=== PATIENT | female | born 1955 | race Caucasian/White ===

== ENCOUNTER → 2016-09-30 | Outpatient (CLI) | payer MEDICARE ==
[~2016-09-30] MED LIST: /HALO5TAB OR; ABIL10TA OR; AMBI10TA OR; ASTAPRO; BENZ1TAB OR; COGE1INJ IJ; DEPA500T2 OR; HALO10TA4 OR; LISI10TA4 OR; NEUR300C OR; QUET30XR OR; RISP3TAB16 OR; SERO400T OR; VIST25CA OR; lopressor
[2016-09-30 13:02] LABS: MEAN CORPUSCULAR HEMOGLOBIN 32.5 pg (27.0-33.0); MEAN CORPUSCULAR HGB CONC 32.7 g/dl (32.0-36.5); MEAN CORPUSCULAR VOLUME 99.3 fl (80.0-96.0); RED CELL DISTRIBUTION WIDTH 13.4 % (11.5-14.5); WHITE BLOOD COUNT 5.1 K/mm3 (4.0-10.0)
[2016-09-30 13:14] LABS: ALBUMIN 3.6 GM/DL (3.2-5.2); ALBUMIN/GLOBULIN RATIO 1.09 (1.00-1.93); ALKALINE PHOSPHATASE 106 U/L (45-117); ALT/SGPT 45 U/L (12-78); ANION GAP 6 MEQ/L (8-16); AST/SGOT 39 U/L (15-37); BILIRUBIN,TOTAL 0.5 MG/DL (0.2-1.0); BLOOD UREA NITROGEN 31 MG/DL (7-18); CALCIUM LEVEL 9.9 MG/DL (8.8-10.2); CARBON DIOXIDE LEVEL 32 MEQ/L (21-32); CHLORIDE LEVEL 103 MEQ/L (98-107); CHOLESTEROL LEVEL 228 MG/DL (<200); CREATININE FOR GFR 0.98 MG/DL (0.55-1.02); GLOMERULAR FILTRATION RATE > 60.0 (>45); GLUCOSE, FASTING 92 MG/DL (80-110); POTASSIUM SERUM 4.3 MEQ/L (3.5-5.1); SODIUM LEVEL 141 MEQ/L (136-145); TOTAL PROTEIN 6.9 GM/DL (6.4-8.2); TRIGLYCERIDES LEVEL 223 MG/DL (<150)
== END ==
LOC: M WUC 09:36
PROVIDERS: ATTEND Family Medicine
DX: K21.9 Gastro-esophageal reflux disease without esophagitis (principal); I10 Essential (primary) hypertension

== ENCOUNTER → 2016-12-13 | Outpatient (CLI) | payer MEDICARE ==
[~2016-12-13] MED LIST changes: +BUPR150T3 PO; +DEPA500T2 PO; +GLUCTAB6 PO; +KETO0.05 TOP; +LEVA1TAB2 PO; +OMEP40CA2 PO; +SERO200T PO; +VITMTA PO
--- NOTE | 2016-12-13 13:13 | REP ---
Right hip two views : There is no fracture or dislocation. Mineralization and joint spaces are normal. There are no calcifications or foreign bodies. Impression: Negative right hip . Signed by Nehemias Almendarez MD 12/13/2016 01:04 P
== END ==
LOC: M WUC 09:25
PROVIDERS: ATTEND Physician Assistant
DX: S70.01XA Contusion of right hip, initial encounter (principal); Y92.89 Other specified places as the place of occurrence of the external cause; Y93.89 Activity, other specified; Y99.8 Other external cause status; X58.XXXA Exposure to other specified factors, initial encounter

== ENCOUNTER → 2016-12-25 | Outpatient (REF) | payer MEDICARE ==
[2016-12-25 20:23] LABS: CALCIUM OXALATE CRYSTALS LARGE
== END ==
LOC: M LAB REF 16:40
PROVIDERS: ATTEND Family Medicine
DX: R35.0 Frequency of micturition (principal)

== ENCOUNTER → 2017-06-18 | Outpatient (REF) | payer MEDICARE ==
[2017-06-18 19:23] LABS: WBC, URINE TNTC /hpf (0-3)
[2017-06-18 19:27] LABS: AMORPHOUS SEDIMENT, URINE LARGE AMOUNT (NEGATIVE); BACTERIA, URINE MOD AMOUNT; HYALINE CAST, URINE NONE SEEN /lpf (0-1); MICROSCOPIC EXAM PERFORMED; RBC, URINE 0-1 /hpf (0-3); SQUAMOUS EPITHELIAL CELL URINE MOD AMOUNT /hpf (SMALL AMT); TRANSITIONAL EPI CELLS, URINE SMALL AMOUNT /hpf
== END ==
LOC: M SMT 18:04
DX: R32 Unspecified urinary incontinence (principal)
CPT/HCPCS: 81015

== ENCOUNTER → 2017-10-08 | Outpatient (CLI) | payer MEDICARE ==
[2017-10-08 20:08] LABS: BASO # 0.1 10^3/uL (0.0-0.2); BASO % 1.3 % (0.0-1.0); EOS # 0.1 10^3/uL (0.0-0.50); EOS % 1.7 % (0.0-3.0); HEMATOCRIT 40.7 % (36.0-47.0); HEMOGLOBIN 13.7 g/dl (12.0-15.5); IMMATURE GRANULOCYTE % 2.4 % (0-3.0); LYMPH # 1.4 10^3/uL (1.5-4.5); LYMPH % 30.8 % (24.0-44.0); MEAN CORPUSCULAR HEMOGLOBIN 31.5 pg (27.0-33.0); MEAN CORPUSCULAR HGB CONC 33.7 g/dl (32.0-36.5); MEAN CORPUSCULAR VOLUME 93.6 fl (80.0-96.0); MONO # 0.5 10^3/uL (0.0-0.8); MONO % 10.8 % (0.0-5.0); NEUTROPHILS # 2.4 10^3/uL (1.8-7.7); PLATELET COUNT, AUTOMATED 130 10^3/uL (150-450); RED BLOOD COUNT 4.35 10^6/uL (4.00-5.40); RED CELL DISTRIBUTION WIDTH 13.2 % (11.5-14.5); WHITE BLOOD COUNT 4.6 10^3/uL (4.0-10.0)
[2017-10-08 20:26] LABS: ALBUMIN 3.7 GM/DL (3.2-5.2); ALBUMIN/GLOBULIN RATIO 1.19 (1.00-1.93); ALKALINE PHOSPHATASE 96 U/L (45-117); ALT/SGPT 24 U/L (12-78); AST/SGOT 22 U/L (7-37); BILIRUBIN,DIRECT < 0.1 MG/DL (0.0-0.2); BILIRUBIN,TOTAL 0.2 MG/DL (0.2-1.0); FREE T3 2.4 PG/ML (2.2-4.0); IRON (FE) 96 UG/DL (50-170); THYROXINE (T4) 4.7 UG/DL (4.5-12.0); TOTAL PROTEIN 6.8 GM/DL (6.4-8.2)
== END ==
LOC: M WUC 17:47
DX: R53.83 Other fatigue (principal)
CPT/HCPCS: 83540

== ENCOUNTER → 2018-01-06 | Outpatient (CLI) | payer MEDICARE | LOC: M WUC 14:13 | DX: M25.571 Pain in right ankle and joints of right foot (principal) | CPT/HCPCS: 73610 ==

== ENCOUNTER → 2018-03-31 | Outpatient (REF) | payer MEDICARE ==
[2018-04-02 14:22] LABS: HPV HYBRID CAPTURE II Negative (Negative)
== END ==
LOC: M LAB REF 17:17
DX: Z01.419 Encounter for gynecological examination (general) (routine) without abnormal findings (principal); Z11.51 Encounter for screening for human papillomavirus (HPV)
CPT/HCPCS: G0123

== ENCOUNTER 2018-04-13 12:34 | Outpatient (RCR) | payer MEDICARE | END 2018-04-17 | LOC: M PT 12:34 | DX: M25.571 Pain in right ankle and joints of right foot (principal) | CPT/HCPCS: 97110 ==

== ENCOUNTER → 2018-04-22 | Outpatient (CLI) | payer MEDICARE ==
[2018-04-22 17:01] LABS: ALBUMIN 3.9 GM/DL (3.2-5.2); ALBUMIN/GLOBULIN RATIO 1.26 (1.00-1.93); ALKALINE PHOSPHATASE 87 U/L (45-117); ALT/SGPT 38 U/L (12-78); AST/SGOT 29 U/L (7-37); BILIRUBIN,DIRECT 0.1 MG/DL (0.0-0.2); BILIRUBIN,TOTAL 0.5 MG/DL (0.2-1.0); THYROID STIMULATING HORMONE 0.629 uIU/ML (0.358-3.740); THYROXINE (T4) 8.3 UG/DL (4.5-12.0)
== END ==
LOC: M WUC 10:45
DX: E07.9 Disorder of thyroid, unspecified (principal)
CPT/HCPCS: 84443

== ENCOUNTER 2018-04-27 12:59 | Outpatient (RCR) | payer MEDICARE | END 2018-05-18 | LOC: M PT 12:59 | PROVIDERS: ATTEND Orthopaedic Surgery | DX: S96.911D Strain of unspecified muscle and tendon at ankle and foot level, right foot, subsequent encounter (principal) ==

== ENCOUNTER 2018-12-15 12:02 | Emergency (ER) | payer MEDICARE, SELFPAY ==
[~2018-12-15] VITALS: Ht 167.6 cm; Wt 82.3 kg
[~2018-12-15 12:02] MED LIST changes: -/HALO5TAB OR; +HALO1TAB21 OR; -QUET30XR OR; +SERO300T20 OR
[2018-12-15] MEDS ORDERED: DEPA250T32 PO (12:11)
[2018-12-15] MEDS ORDERED: AMOX875T (12:13)
[2018-12-15] MEDS ORDERED: PANT40TA3 PO (12:13)
[2018-12-15] MEDS ORDERED: AMLO5TAB6 PO (12:13)
--- NOTE | 2018-12-15 13:04 | REP ---
Clinical: Pain and swelling. Technique: AP, lateral, bilateral oblique and sunrise views of the right knee. Findings: Osteopenia and early advanced tricompartmental osteoarthritic degenerative changes are appreciated. Findings include subchondral sclerosis, osteophytosis, joint space narrowing. Small suprapatellar effusion cannot be excluded. No acute fracture or dislocation. Impression: Osteopenia and early advanced tricompartmental osteoarthritic degenerative changes. Electronically Signed by Ant Tucker MD 12/15/2018 12:56 P
[2018-12-15 14:41] VITALS: BP 137/96
[2018-12-15] MEDS ORDERED: CAPS0.022 TOP (16:00)
[2018-12-15] MEDS ORDERED: ACETAMINOPHEN 650MG ER TAB (TYLENOL ARTHRITIS) PO PRN (16:15)
[2019-01-04] MEDS ORDERED: DIVA500T9 PO (11:21)
[2019-01-04] MEDS ORDERED: OXYB5TAB2 PO (11:21)
[2019-01-04] MEDS ORDERED: NP T30TA PO (11:21)
[2019-01-04] MEDS ORDERED: QUET200T2 PO (11:21)
[2019-01-04] MEDS ORDERED: CIDA500T2 PO (11:31)
[2019-01-04] MEDS ORDERED: ACET500T15 PO (11:31)
[2019-01-04] MEDS ORDERED: AZO1CAP2 PO (11:31)
[2019-01-04] MEDS ORDERED: CALC1TAB26 PO (11:31)
== END 2018-12-15 16:25 | disposition home or self-care (01) ==
LOC: M ED 12:02
DX: M17.11 Unilateral primary osteoarthritis, right knee (principal); M85.861 Other specified disorders of bone density and structure, right lower leg; I10 Essential (primary) hypertension; K21.9 Gastro-esophageal reflux disease without esophagitis; F31.9 Bipolar disorder, unspecified; Z79.899 Other long term (current) drug therapy

== ENCOUNTER 2018-12-21 21:23 | Emergency (ER) | payer MEDICARE ==
[~2018-12-21] VITALS: Ht 167.6 cm; Wt 181.0 kg
[~2018-12-21 21:23] MED LIST changes: +AMLO5TAB6 PO; +AMOX875T; +CAPS0.022 TOP; +DEPA250T32 PO; -OMEP40CA2 PO; +OMEP40CA97 PO; +PANT40TA3 PO
[2018-12-21 22:18] LABS: BASO # 0.1 10^3/uL (0.0-0.2); BASO % 1.2 % (0.0-1.0); EOS # 0.1 10^3/uL (0.0-0.50); EOS % 1.2 % (0.0-3.0); HEMATOCRIT 42.6 % (36.0-47.0); HEMOGLOBIN 13.8 g/dl (12.0-15.5); LYMPH # 1.7 10^3/uL (1.5-4.5); LYMPH % 26.3 % (24.0-44.0); MEAN CORPUSCULAR HGB CONC 32.4 g/dl (32.0-36.5); MEAN CORPUSCULAR VOLUME 89.5 fl (80.0-96.0); MONO # 0.8 10^3/uL (0.0-0.8); MONO % 11.4 % (0.0-5.0); NEUTROPHILS # 3.9 10^3/uL (1.8-7.7); NEUTROPHILS % 59.6 % (36.0-66.0); PLATELET COUNT, AUTOMATED 228 10^3/uL (150-450); RED BLOOD COUNT 4.76 10^6/uL (4.00-5.40); WHITE BLOOD COUNT 6.6 10^3/uL (4.0-10.0)
[2018-12-21 22:53] LABS: BLOOD UREA NITROGEN 19 MG/DL (7-18); CALCIUM LEVEL 9.7 MG/DL (8.8-10.2); CARBON DIOXIDE LEVEL 31 MEQ/L (21-32); CHLORIDE LEVEL 107 MEQ/L (98-107); CK-MB VALUE MASS 5.8 NG/ML (<3.6); CPK CREATINE PHOSPHOKINASE 213 U/L (26-192); CREATININE FOR GFR 0.97 MG/DL (0.55-1.30); GLOMERULAR FILTRATION RATE > 60.0 (>45); GLUCOSE, FASTING 92 MG/DL (70-100); MB/CK RELATIVE INDEX 2.72 (< OR =4); POTASSIUM SERUM 4.1 MEQ/L (3.5-5.1); SODIUM LEVEL 143 MEQ/L (136-145); TROPONIN I < 0.02 NG/ML (< 0.10)
[2018-12-21 23:15] VITALS: BP 156/97
--- NOTE | 2018-12-22 09:18 | REP ---
PORTABLE CHEST, ONE VIEW: HISTORY: Chest pain. COMPARISON: 11/14/2016. The lungs are clear. The heart is normal in size. The pulmonary vasculature is normal in appearance. IMPRESSION: No acute disease. Electronically Signed by Rico Lyles MD 12/22/2018 09:29 A
--- NOTE | 2018-12-22 19:42 | ECGEPIP ---
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
[2019-01-04] MEDS ORDERED: NP T30TA PO (11:21)
[2019-01-04] MEDS ORDERED: QUET200T2 PO (11:21)
[2019-01-04] MEDS ORDERED: OXYB-54 PO (11:21)
[2019-01-04] MEDS ORDERED: DIVA500T9 PO (11:21)
[2019-01-04] MEDS ORDERED: CALC1TAB26 PO (11:31)
[2019-01-04] MEDS ORDERED: CIDA500T2 PO (11:31)
[2019-01-04] MEDS ORDERED: AZO1CAP2 PO (11:31)
[2019-01-04] MEDS ORDERED: ACET500T15 PO (11:31)
[2019-04-10] MEDS ORDERED: CLON0.5T2 PO (11:49)
[2019-04-27] MEDS ORDERED: AMLO10TA5 PO (18:36)
[2019-04-27] MEDS ORDERED: ROBILIQ13 PO (18:36)
== END 2018-12-21 23:34 | disposition home or self-care (01) ==
LOC: M ED 21:23
DX: R00.2 Palpitations (principal); R00.0 Tachycardia, unspecified; I10 Essential (primary) hypertension; Z82.49 Family history of ischemic heart disease and other diseases of the circulatory system; Z79.899 Other long term (current) drug therapy

== ENCOUNTER → 2018-12-24 | Outpatient (CLI) | payer MEDICARE ==
[~2018-12-24] MED LIST changes: +ACET-897 PO; +ACET500T15 PO; +AMLO10TA5 PO; +AZO1CAP2 PO; +CALC1TAB26 PO; +CIDA500T2 PO; +CLON0.5T17 PO; +CLON0.5T2 PO; +DIVA500T9 PO; +LATU20TA PO; +LATU40TA PO; +MELA3TAB41 PO; +MELA3TAB49 PO; +MELA3TAB59 PO; +NP T30TA PO; +OXYB-54 PO; +PATIENT COMMENTS; +QUET200T2 PO; +ROBI1LIQ PO; +ROBILIQ13 PO; +SELF1KIT MC; +SERO400T PO
[2018-12-24 19:43] LABS: HEMATOCRIT 43.9 % (36.0-47.0); HEMOGLOBIN 14.2 g/dl (12.0-15.5); MEAN CORPUSCULAR HEMOGLOBIN 28.5 pg (27.0-33.0); MEAN CORPUSCULAR HGB CONC 32.3 g/dl (32.0-36.5); MEAN CORPUSCULAR VOLUME 88.2 fl (80.0-96.0); PLATELET COUNT, AUTOMATED 224 10^3/uL (150-450); RED BLOOD COUNT 4.98 10^6/uL (4.00-5.40); WHITE BLOOD COUNT 5.9 10^3/uL (4.0-10.0)
[2018-12-24 20:03] LABS: BILIRUBIN,TOTAL 0.4 MG/DL (0.2-1.0); CREATININE FOR GFR 1.05 MG/DL (0.55-1.30); GLOMERULAR FILTRATION RATE 56.3 (>45); POTASSIUM SERUM 4.5 MEQ/L (3.5-5.1); TOTAL PROTEIN 7.4 GM/DL (6.4-8.2)
== END ==
LOC: M WUC 16:32
PROVIDERS: ATTEND Family Medicine
DX: Z01.818 Encounter for other preprocedural examination (principal)

== ENCOUNTER 2019-04-10 11:39 | Inpatient (IN) | payer MEDICARE ==
[~2019-04-10] VITALS: Ht 167.6 cm; Wt 85.4 kg
[~2019-04-10 11:39] MED LIST changes: -ACET-897 PO; -AMLO10TA5 PO; -CLON0.5T17 PO; -CLON0.5T2 PO; -LATU20TA PO; -LATU40TA PO; -MELA3TAB41 PO; -MELA3TAB49 PO; -MELA3TAB59 PO; -OXYB-54 PO; +OXYB5TAB2 PO; -PATIENT COMMENTS; -ROBI1LIQ PO; -ROBILIQ13 PO; -SELF1KIT MC; -SERO400T PO
[2019-04-10] MEDS ORDERED: CLON0.5T8 PO (11:49)
[2019-04-10 12:08] LABS: BASO # 0.1 10^3/uL (0.0-0.2); BASO % 0.9 % (0.0-1.0); EOS # 0.1 10^3/uL (0.0-0.5); EOS % 0.9 % (0.0-3.0); HEMATOCRIT 43.2 % (36.0-47.0); HEMOGLOBIN 13.8 g/dl (12.0-15.5); LYMPH # 1.6 10^3/uL (1.5-5.0); LYMPH % 29.2 % (24.0-44.0); MEAN CORPUSCULAR HEMOGLOBIN 29.6 pg (27.0-33.0); MEAN CORPUSCULAR HGB CONC 31.9 g/dl (32.0-36.5); MEAN CORPUSCULAR VOLUME 92.5 fl (80.0-96.0); MONO # 0.5 10^3/uL (0.0-0.8); MONO % 9.9 % (0.0-5.0); NEUTROPHILS # 3.2 10^3/uL (1.5-8.5); NEUTROPHILS % 58.4 % (36.0-66.0); PLATELET COUNT, AUTOMATED 190 10^3/uL (150-450); RED BLOOD COUNT 4.67 10^6/uL (4.00-5.40); WHITE BLOOD COUNT 5.5 10^3/uL (4.0-10.0)
[2019-04-10 12:30] LABS: ABG BASE EXCESS 4.7 (-2.0-2.0); ABG HCO3 29.4 MEQ/L (22.0-26.0); ABG O2 SATURATION 94.1 % (95.0-99.0); ABG PARTIAL PRESSURE CO2 43.7 mmHg (35.0-45.0); ABG PARTIAL PRESSURE O2 68.8 mmHg (75.0-100.0); ABG STANDARD HCO3 28.6 MEQ/L (22.0-26.0); ABG TOTAL CO2 30.8 MEQ/L (23.0-31.0); ABG pH (ARTERIAL) 7.446 UNITS (7.350-7.450)
--- NOTE | 2019-04-10 12:32 | REP ---
REASON FOR EXAM: Drug overdose. COMPARISON: 12/21/2018 FINDINGS: The technique utilized in obtaining the radiograph has magnified the cardiac silhouette and accentuated the interstitial markings. The superior mediastinal structures are midline. The cardiac silhouette is unremarkable in size, shape, and position. The diaphragmatic surfaces of the lungs are regular, and the costophrenic angles are clear. The pulmonary martin are clear. The imaged osseous structures are intact. IMPRESSION: There is no acute cardiopulmonary disease. No change from the prior exam. Electronically Signed by Godfrey Pierson DO 04/10/2019 01:28 P
[2019-04-10 12:40] LABS: ACETAMINOPHEN LEVEL < 2.0 UG/ML (10.0-30.0); ALBUMIN 3.4 GM/DL (3.2-5.2); ALT/SGPT 32 U/L (12-78); BILIRUBIN,DIRECT < 0.1 MG/DL (0.0-0.2); BILIRUBIN,TOTAL 0.4 MG/DL (0.2-1.0); BLOOD UREA NITROGEN 24 MG/DL (7-18); CALCIUM LEVEL 9.8 MG/DL (8.8-10.2); CARBON DIOXIDE LEVEL 31 MEQ/L (21-32); CHLORIDE LEVEL 101 MEQ/L (98-107); CPK CREATINE PHOSPHOKINASE 296 U/L (26-192); ETHYL ALCOHOL (ETHANOL) < 0.003 % (0.000-0.010); GLOMERULAR FILTRATION RATE 43.9 (>45); GLUCOSE, FASTING 146 MG/DL (70-100); POTASSIUM SERUM 3.8 MEQ/L (3.5-5.1); SALICYLATE LEVEL < 1.7 MG/DL (5.0-30.0); SODIUM LEVEL 139 MEQ/L (136-145); THYROID STIMULATING HORMONE 0.771 uIU/ML (0.358-3.740); TOTAL PROTEIN 6.7 GM/DL (6.4-8.2)
--- NOTE | 2019-04-10 13:12 | ECGEPIP ---
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
[2019-04-10] MEDS ORDERED: NS 1,000 ML IV ONE (13:15)
[2019-04-10] MEDS ORDERED: LIDOCAINE 2% 5ML JELLY UROJET TOP ONE (13:15)
[2019-04-10 14:18] LABS: AMPHETAMINES LEVEL URINE NEGATIVE (NEGATIVE); BARBITURATES URINE NEGATIVE (NEGATIVE); BENZODIAZEPINES URINE NEGATIVE (NEGATIVE); CANNABINOIDS URINE NEGATIVE (NEGATIVE); COCAINE METABOLITE URINE NEGATIVE (NEGATIVE); METHADONE URINE NEGATIVE (NEGATIVE); OPIATES URINE NEGATIVE (NEGATIVE); PHENCYCLIDINE URINE NEGATIVE (NEGATIVE)
[2019-04-10] MEDS: clonazePAM 0.5 MG TAB PO SCH (21:00)
[2019-04-10] MEDS ORDERED: traZODone 50 MG TAB PO PRN (22:00)
[2019-04-10] MEDS ORDERED: MOM 30ML SUSPENSION UDC PO PRN (22:00)
[2019-04-10] MEDS ORDERED: PATIENT COMMENTS (22:51)
[2019-04-10 23:22] VITALS: BP 133/77
[2019-04-11] MEDS: ACETAMINOPHEN TAB 650MG DOSE (2X325MG) PO PRN ×2 (00:46→20:10)
[2019-04-11] MEDS ORDERED: QUEtiapine FUMARATE 200 MG TAB PO SCH ×3 (04:00→21:00)
[2019-04-11] MEDS: QUEtiapine FUMARATE 100 MG TAB PO SCH ×2 (04:08→20:10)
[2019-04-11 06:53] VITALS: BP 111/58
[2019-04-11] MEDS: clonazePAM 0.5 MG TAB PO SCH ×2 (08:42→20:10)
[2019-04-11] MEDS: buPROPion **XL** TABLET 150MG (WELLBUTRIN XL) PO SCH (08:42)
[2019-04-11] MEDS: MULTIVITAMINS/MINERALS THERAP 1 TAB PO SCH (08:42)
[2019-04-11] MEDS: PANTOPRAZOLE 40MG TAB (PROTONIX) PO SCH (08:42)
[2019-04-11] MEDS: amLODIPine 5 MG TAB PO SCH (08:42)
[2019-04-11 15:39] VITALS: BP 140/75
[2019-04-11] MEDS: MAALOX 30 ML SUSP *UDC PO PRN (16:56)
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
--- NOTE | 2019-04-11 21:04 | HPE ---
DATE OF ADMISSION: 04/11/2019 Hospitalist inpatient mental health history and physical. PRIMARY CARE PHYSICIAN: Dr. Herber Johnson. Jenn García is seen in the inpatient mental health unit ([facility]). She denies any chest, shortness of breath, palpitations. She just wants to sleep. She says she is very tired. PAST MEDICAL HISTORY: 1. Hypertension. 2. Bipolar disorder. 3. History of depression. Electronic medical records (EMR) show that she had an echocardiogram in 2019, ejection fraction 65%, no significant valvular disease. MEDICATIONS: - amlodipine 5 mg daily - Wellbutrin XL 150 mg two tablets daily - clonazepam 0.5 mg twice a day - Protonix 40 mg daily - Seroquel 200 mg in the morning, 400 mg at bedtime - multivitamins - calcium - glucosamine ALLERGIES: Unknown. SOCIAL HISTORY: Denies smoking. Does drink occasional alcohol. REVIEW OF SYSTEMS: As above. PHYSICAL EXAMINATION: VITAL SIGNS: Per flow sheet. She is alert and conversant. No distress. Answers appropriate and goal-directed. HEENT: Unremarkable. LUNGS: Clear. HEART: Regular rate and rhythm without murmur. ABDOMEN: Soft, nontender, without masses. Trace peripheral edema. NEUROLOGICAL EXAM: Nonfocal. LABORATORIES: Complete blood count (CBC) and complete metabolic profile (CMP) unremarkable. Chest x-ray showed no active disease. IMPRESSION: 1. Hypertension. Continue amlodipine 5 mg daily. 2. Psychiatric medications per IM. 3. Mildly elevated creatinine. Creatinine is up a little bit from baseline. Ordered a repeat basic metabolic panel (BMP) for tomorrow.
[2019-04-12] MEDS: MAALOX 30 ML SUSP *UDC PO PRN (05:22)
[2019-04-12 06:05] VITALS: BP 147/92
[2019-04-12 07:56] LABS: CALCIUM LEVEL 9.6 MG/DL (8.8-10.2); CREATININE FOR GFR 1.12 MG/DL (0.55-1.30); GLOMERULAR FILTRATION RATE 52.1 (>45); POTASSIUM SERUM 4.5 MEQ/L (3.5-5.1)
[2019-04-12 09:00] VITALS: BP 140/90
[2019-04-12] MEDS: clonazePAM 0.5 MG TAB PO SCH (09:04)
[2019-04-12 09:05] VITALS: BP 140/90
[2019-04-12] MEDS: PANTOPRAZOLE 40MG TAB (PROTONIX) PO SCH (09:05)
[2019-04-12] MEDS: amLODIPine 5 MG TAB PO SCH (09:05)
[2019-04-12] MEDS: MULTIVITAMINS/MINERALS THERAP 1 TAB PO SCH (09:05)
[2019-04-12] MEDS: buPROPion **XL** TABLET 150MG (WELLBUTRIN XL) PO SCH (09:05)
--- NOTE | 2019-04-12 09:26 | MHIPNPDOC ---
[facility] Progress Note Vital Signs Vital Signs Date Time Temp Pulse Resp B/P (MAP) Pulse Ox O2 Delivery O2 Flow Rate FiO2 04/12/19 09:05 97 140/90 04/12/19 09:00 18 04/12/19 06:05 97.8 04/10/19 23:22 95 Room Air 04/10/19 18:15 2.0 Laboratory Data 24H Labs Laboratory Tests 2 04/11/19 11:21: Valproic Acid (Depakene) Level 51.3 04/12/19 06:32: Anion Gap 5L, Glomerular Filtration Rate 52.1, Calcium Level 9.6 CBC/BMP Laboratory Tests 04/12/19 06:32 Current Medications Current Medications Medications (Trade) Dose Ordered Sig/Terence Route PRN Reason Start Time Stop Time Status Last Admin Dose Admin Acetaminophen (Tylenol Tab) 650 mg Q6HP PRN PO HEADACHE or DISCOMFORT 04/10/19 22:00 04/11/19 20:10 Al Hydrox/Mg Hydrox/Simethicone (Mylanta) 30 ml Q4HP PRN PO HEARTBURN/INDIGESTION 04/10/19 22:00 04/12/19 05:22 Amlodipine Besylate (Norvasc) 5 mg DAILY PO 04/11/19 09:00 04/12/19 09:05 Bupropion HCl (Wellbutrin Xl) 300 mg DAILY PO 04/11/19 09:00 04/12/19 09:05 Clonazepam (KlonoPIN) 0.5 mg BID PO 04/10/19 21:00 04/12/19 09:04 Home Med (Med Rec Complete!) ASDIRECTED XX 04/10/19 23:00 04/10/19 23:10 DC Magnesium Hydroxide (Milk Of Magnesia) 30 ml DAILYPRN PRN PO CONSTIPATION 04/10/19 22:00 Multivitamins (Theragram-M) 1 tab DAILY PO 04/11/19 09:00 04/12/19 09:05 Pantoprazole Sodium (Protonix) 40 mg DAILY PO 04/11/19 09:00 04/12/19 09:05 Quetiapine Fumarate (SEROquel) 200 mg QAM PO 04/11/19 09:00 Cancel Quetiapine Fumarate (SEROquel) 400 mg QHS PO 04/11/19 04:00 UNV Quetiapine Fumarate (SEROquel) 400 mg QHS PO 04/11/19 21:00 04/11/19 03:47 DC Quetiapine Fumarate (SEROquel) 600 mg QHS PO 04/10/19 21:00 04/11/19 20:10 Trazodone HCl (Desyrel) 50 mg QHSP PRN PO INSOMNIA 04/10/19 22:00 Allergies Coded Allergies: No Known Allergies (Unverified , 01/04/19) ROGERIO WILSON DO Apr 12, 2019 09:26
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
== END 2019-04-12 14:25 | disposition home or self-care (01) | DRG 881 ==
LOC: M ED 11:39 → M ED INP 21:47 → M PSY 23:06
PROVIDERS: ADMIT Psychiatry & Neurology Psychiatry; ATTEND Psychiatry & Neurology Addiction Medicine
DX: F32.9 Major depressive disorder, single episode, unspecified (principal); I10 Essential (primary) hypertension; F19.10 Other psychoactive substance abuse, uncomplicated; F60.3 Borderline personality disorder; Z79.899 Other long term (current) drug therapy

== ENCOUNTER 2019-04-13 11:07 | Inpatient (IN) | payer MEDICARE ==
[~2019-04-13] VITALS: Ht 167.6 cm; Wt 86.8 kg
[~2019-04-13 11:07] MED LIST changes: +CLON0.5T8 PO; +PATIENT COMMENTS
[2019-04-13 12:26] LABS: HEMATOCRIT 46.5 % (36.0-47.0); HEMOGLOBIN 15.1 g/dl (12.0-15.5); MEAN CORPUSCULAR HEMOGLOBIN 30.5 pg (27.0-33.0); MEAN CORPUSCULAR HGB CONC 32.5 g/dl (32.0-36.5); MEAN CORPUSCULAR VOLUME 93.9 fl (80.0-96.0); PLATELET COUNT, AUTOMATED 154 10^3/uL (150-450); RED BLOOD COUNT 4.95 10^6/uL (4.00-5.40); WHITE BLOOD COUNT 5.3 10^3/uL (4.0-10.0)
[2019-04-13 12:45] LABS: AMPHETAMINES LEVEL URINE NEGATIVE (NEGATIVE); BARBITURATES URINE NEGATIVE (NEGATIVE); BENZODIAZEPINES URINE NEGATIVE (NEGATIVE); CANNABINOIDS URINE NEGATIVE (NEGATIVE); COCAINE METABOLITE URINE NEGATIVE (NEGATIVE); METHADONE URINE NEGATIVE (NEGATIVE); OPIATES URINE NEGATIVE (NEGATIVE); PHENCYCLIDINE URINE NEGATIVE (NEGATIVE)
[2019-04-13 13:32] LABS: ACETAMINOPHEN LEVEL < 2.0 UG/ML (10.0-30.0); ALBUMIN 4.3 GM/DL (3.2-5.2); ALT/SGPT 46 U/L (12-78); BILIRUBIN,DIRECT < 0.1 MG/DL (0.0-0.2); BILIRUBIN,TOTAL 0.4 MG/DL (0.2-1.0); BLOOD UREA NITROGEN 19 MG/DL (7-18); CARBON DIOXIDE LEVEL 28 MEQ/L (21-32); CHLORIDE LEVEL 104 MEQ/L (98-107); CREATININE FOR GFR 1.05 MG/DL (0.55-1.30); ETHYL ALCOHOL (ETHANOL) < 0.003 % (0.000-0.010); GLOMERULAR FILTRATION RATE 56.2 (>45); GLUCOSE, FASTING 109 MG/DL (70-100); POTASSIUM SERUM 4.5 MEQ/L (3.5-5.1); SALICYLATE LEVEL < 1.7 MG/DL (5.0-30.0); SODIUM LEVEL 138 MEQ/L (136-145)
[2019-04-13] MEDS ORDERED: traZODone 50 MG TAB PO PRN (20:15)
[2019-04-13] MEDS ORDERED: MOM 30ML SUSPENSION UDC PO PRN (20:15)
[2019-04-13] MEDS ORDERED: MAALOX 30 ML SUSP *UDC PO PRN (20:15)
[2019-04-13] MEDS ORDERED: ACETAMINOPHEN TAB 650MG DOSE (2X325MG) PO PRN (20:15)
[2019-04-13 21:08] VITALS: BP 160/100
[2019-04-14] VITALS (12 sets, daily range): BP systolic 78–170; BP diastolic 52–105
[2019-04-14] MEDS ORDERED: amLODIPine 5 MG TAB PO ONE (00:15)
[2019-04-14] MEDS ORDERED: amLODIPine 5 MG TAB PO SCH (09:00)
[2019-04-14] MEDS: MULTIVITAMINS/MINERALS THERAP 1 TAB PO SCH (09:16)
[2019-04-14] MEDS: PANTOPRAZOLE 40MG TAB (PROTONIX) PO SCH (09:17)
[2019-04-14] MEDS: buPROPion **XL** TABLET 150MG (WELLBUTRIN XL) PO SCH (09:17)
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
[2019-04-14] MEDS: TRIAMCINOLONE ACET 0.1% OINTMENT 80 GM TOP SCH ×2 (11:56→21:00)
[2019-04-14] MEDS: VANICREAM MOISTURIZING SKIN CREAM 113GM TUBE TOP SCH ×2 (11:57→21:00)
[2019-04-14] MEDS ORDERED: CHLORTHALIDONE 25 MG TAB PO ONE (12:00)
--- NOTE | 2019-04-14 14:59 | REP ---
Clinical: Bilateral pain and swelling . Technique: Arvizu scale and color Doppler evaluation using linear high frequency transducer. Findings: Ultrasound examination of the right and left lower extremity deep venous structures from the common femoral vein to the popliteal vein demonstrates normal compressibility flow and wave patterns in response to respiration and augmentation. There is no evidence for deep venous thrombosis. Impression: No evidence for deep venous thrombosis. Electronically Signed by Ant Tucker MD 04/14/2019 02:51 P
[2019-04-14] MEDS ORDERED: cloNIDine 0.2 MG TAB PO ONE (15:00)
[2019-04-14] MEDS ORDERED: LISINOPRIL 5 MG TAB PO ONE ×2 (15:00→17:00)
[2019-04-14] MEDS ORDERED: NITROGLYCERIN 2% OINT 1 GM *U/D* PKT TOP ONE (17:00)
[2019-04-14] MEDS ORDERED: cloNIDine 0.1 MG TAB PO ONE (17:00)
[2019-04-14] MEDS ORDERED: LURASIDONE 20 MG TAB (LATUDA) PO SCH ×2 (18:00)
[2019-04-14] MEDS ORDERED: LISINOPRIL 5 MG TAB PO SCH (21:00)
[2019-04-14] MEDS ORDERED: RAMELTEON 8 MG TAB (ROZEREM) PO SCH (21:00)
[2019-04-14] MEDS ORDERED: LISINOPRIL 10 MG TAB PO SCH (21:00)
--- NOTE | 2019-04-14 21:12 | ECHO ---
DATE OF PROCEDURE: 04/14/2019 Date of : 1955 Age: 64 REFERRING PROVIDER: Kavitha Hyatt MD REASON FOR ECHOCARDIOGRAM: Abnormal EKG. 2D MEASUREMENTS: IVS: 1.0 cm LV: 4.8 cm LVPW: 1.0 cm LA: 3.6 cm Aorta: 3.2 cm IVC: 1.4 cm DOPPLER MEASUREMENTS: Peak velocity across the aortic valve: 1.2 m/s Peak velocity across the LVOT: 0.7 m/s Maximum tricuspid valve velocity: 1.8 m/s 2D COMMENTS: 1. Normal left ventricular size, wall thickness, but with a mildly depressed global left ventricular systolic function. There was mild global hypokinesis. The estimated left ventricular systolic ejection fraction is 45 to 50%. 2. Normal left atrium. Normal right atrium and right ventricle. 3. The atrial septum appeared to be normal without evidence of defect or shunt. 4. Normal aortic root. 5. A small pericardial effusion was noted around the heart, no evidence of cardiac tamponade. 6. Normal aortic valve. Mildly calcified mitral annulus with normal anterior mitral valve leaflet motion. Normal tricuspid valve and pulmonic valve. The proximal pulmonary artery branches were not well visualized. 7. The inferior vena cava was normal in size, central venous pressure is most likely normal. DOPPLER: Only trace tricuspid regurgitation detected. The calculated pulmonary artery systolic pressure was normal. Abnormal relaxation pattern was noted across the mitral valve leaflets as well as the mitral valve annulus consistent with features of grade 1 left ventricular diastolic dysfunction. IMPRESSION 1. Mildly depressed global left ventricular systolic function with global hypokinesis. There are some features of grade 1 left ventricular diastolic dysfunction manifested by abnormal relaxation. 2 Isolated mitral annulus calcification without any evidence of mitral regurgitation or mitral stenosis. 3. Trace tricuspid regurgitation with a normal calculated pulmonary artery systolic pressure. 4. A small pericardial effusion was noted around the heart, no evidence of cardiac tamponade. 5. This was compared with prior study on 11/15/2016 and at that time, left ventricular systolic function was reported to be normal.
[2019-04-14] MEDS ORDERED: MIDODRINE 5 MG TAB PO STA (21:32)
[2019-04-14] MEDS ORDERED: NS 500 ML IV ONE (21:45)
[2019-04-14] MEDS ORDERED: SODIUM CHLORIDE 1 GM TAB PO ONE (22:15)
[2019-04-14] MEDS ORDERED: ONDANSETRON 4 MG TAB (S0181) PO PRN (23:30)
[2019-04-15 05:57] VITALS: BP 122/75
[2019-04-15 07:14] LABS: CREATININE FOR GFR 1.49 MG/DL (0.55-1.30); GLOMERULAR FILTRATION RATE 37.5 (>45); POTASSIUM SERUM 4.3 MEQ/L (3.5-5.1)
[2019-04-15] MEDS: MULTIVITAMINS/MINERALS THERAP 1 TAB PO SCH (08:44)
[2019-04-15] MEDS: PANTOPRAZOLE 40MG TAB (PROTONIX) PO SCH (08:44)
[2019-04-15] MEDS: buPROPion **XL** TABLET 150MG (WELLBUTRIN XL) PO SCH (08:44)
[2019-04-15] MEDS: VANICREAM MOISTURIZING SKIN CREAM 113GM TUBE TOP SCH (08:45)
[2019-04-15] MEDS: TRIAMCINOLONE ACET 0.1% OINTMENT 80 GM TOP SCH (08:45)
[2019-04-15] MEDS ORDERED: CHLORTHALIDONE 25 MG TAB PO SCH (09:00)
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
[2019-04-15] MEDS ORDERED: LATU20TA PO (10:35)
[2019-04-15] MEDS ORDERED: MELA3TAB59 PO (10:35)
--- NOTE | 2019-04-15 11:45 | ECGEPIP ---
[facility] Test Date: 2019-04-14 Pat Name: LOYD SMITH Department: Room: [place] [address] Gender: Female Assistant Grocery: JOSIAH : 1955 Requested By: JIMMY Mak Order Number: [id number] Reading MD: Echo Charles Measurements Intervals [place] Rate: 95 P: 31 GA: 184 QRS: 6 QRSD: 101 T: 38 QT: 358 QTc: 451 Interpretive Statements SINUS RHYTHM LEFT VENTRICULAR HYPERTROPHY AND ST-T CHANGE SIMILAR TO 04/10/2019 Electronically Signed on 04-15-2019 11:45:13 EST by Echo Charles
--- NOTE | 2019-04-15 13:28 | HPE ---
DATE OF ADMISSION: 04/13/2019 HISTORY OF PRESENT ILLNESS: This is a 64-year-old female with history of bipolar disorder, depression, hypertension, admitted to the inpatient mental health unit for depression, complains of occasional palpitations at rest and with exertion at times, about two to three times a month for the past 6 months. Patient denies any near syncopal episodes, lightheadedness, or dizziness when she has these palpitations. Denies any shortness of breath when they occur. Patient was previously evaluated in the emergency room three months ago. According to the patient, she was told that she had atrial fibrillation; however, review of the records at [facility], shows an EKG read by Dr. Goldie Arvizu on 04/10/2019 has sinus tachycardia with nonspecific ST-T wave abnormality, prolonged QTc, and interventricular conduction delay. Previous EKG was 12/21/[address] that was read by Dr. Prashant Medel, which showed sinus tachycardia, nonspecific T-wave abnormality. Patient did not have a documented proof of atrial fibrillation during those previous emergency room visits. Another EKG done read by Dr. Charles on 11/15/2016 also showed sinus rhythm with LVH and nonspecific T-wave abnormality. Echocardiogram performed in [address] Aryan Gomez showed grade 1 left ventricular diastolic dysfunction, but normal ejection fraction of 65%. Patient denies any chest pain, pressure, tightness, headache, changes in vision. Says that her blood pressure has been running high during this admission. She complains of left greater than right lower extremity edema that is nonpitting and has been on Norvasc. She otherwise denies any history of hypercoagulable state, deep venous thromboses(DVTs), or pulmonary embolus (PE) in the past. She has no fever, no chills, no sore throat, no changes in appetite, change in diet, but complains of increase in weight since she has been started on psychiatric medications. She could not remember which one. From her admission yesterday, she was noted to have systolic pressure 169 and diastolic pressure of 95. She was continued on Norvasc prior to this history due to concerns of nonpitting edema caused by Norvasc. This was discontinued this morning, and she was sent for ultrasound of the lower extremities, which was negative for DVT. TSH level within normal limits, to rule out hypothyroidism as cause of patient's recent weight gain. PAST MEDICAL HISTORY: Hypertension. Bipolar disorder. Depression. PRIOR SURGICAL HISTORY: Patient had a tonsillectomy, adenoidectomy as a child and two vaginal deliveries. ALLERGIES: No known drug allergies. SOCIAL HISTORY: Previously smoked for about 9 years but quit about 20 years ago. Lives with her daughter. 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 Drinks about two glasses of wine about three times a week. Lives with daughter and . FAMILY HISTORY: 1. Mother in her 80s with seizures, skin cancer, had a pacemaker placed. 2. One sister, who is three years older, with diabetes. HOME MEDICATIONS: - amlodipine 5 daily - bupropion XL 300 daily - clonazepam 0.5 twice a day - multivitamin one tab daily - Protonix 40 daily - quetiapine 200 daily, 400 nightly - calcium/vitamin D one tablet daily - glucosamine chondroitin one tablet daily REVIEW OF SYSTEMS: Patient also complains of pruritic rash on bilateral feet, left greater than right, very pruritic and erythematous. Occasional palpations, previously evaluated with Holter monitors, and she has had no syncopal episodes or near syncope in the past. Previous EKGs only showed sinus tachycardia and nonspecific T-wave changes on EKG. PHYSICAL EXAMINATION: Temperature 98, pulse 74, respiratory rate 18, blood pressure 170/102, 100% on room air. Generally, awake, alert, oriented to person, place. Face is symmetric. No slurring of speech. Speech is fluent. Patient's tongue and uvula are midline. No jugular venous distention (JVD), thyromegaly. Moist mucous membranes. Lungs are clear to auscultation. No wheezing, rales, or rhonchi. Heart: S1, S2, sinus rhythm. No murmurs, rubs, or gallops. Abdomen is soft, nontender, nondistended. Positive bowel sounds. Extremities: She has nonpitting edema of the left lower extremity greater than the right and an erythematous rash on the dorsum of the foot to the ankle, left greater than right. LABORATORY DATA: White count 5.3, hemoglobin 15, hematocrit 46, platelet count 154. Sodium 138, potassium 4.5, chloride 104, bicarbonate 28, BUN 15, creatinine 1.0, glucose of 109, total bilirubin 0.4, direct bilirubin less than 0.2, AST 44, ALT 46, alkaline phosphatase of 118, TSH of 1.49. Venous ultrasound of bilateral lower extremities: No evidence of DVT. ASSESSMENT AND PLAN: This is a 64-year-old female with history of hypertension, bipolar disorder, depression, and complains of palpitations. Previous EKG has never documented any history of any atrial fibrillation or weight changes , sinus tachycardia, LVH, previous echo had an ejection fraction (EF) of 65% with grade 1 diastolic dysfunction and LVH. ACTIVE ISSUES: Uncontrolled hypertension. Patient is to be placed on a 2-gram sodium diet. Due to lower extremity edema that is nonpitting, her Norvasc has been discontinued as this could have been a possible side effect. Due to history of depression, we have tried to steer away from beta blockade as this can have unfortunate adverse effect of worsening low moods and depression. With calcium blockers and beta blockers which are unable to be used due to significant side effects, we are left to use AUGUST inh angiotensin receptor deo (ARB) derived vasodilators for her. At this time, due to uncontrolled blood pressure, clonidine has been given for rapid onset and she had been given lisinopril, which would help with her LVH and left ventricular diastolic dysfunction. We do need to keep an eye on nonsteroidal anti-inflammatory drug (NSAID) use and patient's kidney function, which is currently normal. Monitor also for any cough or angioedema with angiotensin-converting enzyme (AUGUST) inhibitor use. We will recheck a metabolic panel in the morning. We can titrate the lisinopril as needed for better blood pressure control with goal of less than 140, and ideally 120-130 systolic. Bipolar disorder and depression. Deferred to primary team psychiatrist. MARK
--- NOTE | 2019-04-19 08:42 | MHIPN ---
DATE: 04/15/2019 Due to acute kidney injury from severe hypertension from blood pressure medications given yesterday, patient's lisinopril and chlorthalidone have been discontinued. Avoid nonsteroidal anti-inflammatories and encourage water intake up to 2 liters today and recheck a metabolic panel at 12 noon. No other medications needed to be renally dosed. MTDD
== END 2019-04-15 12:20 | disposition home or self-care (01) | DRG 882 ==
LOC: M ED 11:07 → M ED INP 20:13 → M ED 20:43 → M PSY 20:45
PROVIDERS: ADMIT Psychiatry & Neurology Psychiatry; ATTEND Psychiatry & Neurology Addiction Medicine
DX: F43.24 Adjustment disorder with disturbance of conduct (principal); F19.10 Other psychoactive substance abuse, uncomplicated; F31.70 Bipolar disorder, currently in remission, most recent episode unspecified; I10 Essential (primary) hypertension; K21.9 Gastro-esophageal reflux disease without esophagitis; Z79.899 Other long term (current) drug therapy

== ENCOUNTER 2019-04-16 23:45 | Inpatient (IN) | payer MEDICARE ==
[~2019-04-16] VITALS: Ht 167.6 cm; Wt 84.2 kg
[~2019-04-16 23:45] MED LIST changes: +CLON0.5T2 PO; -CLON0.5T8 PO; +LATU20TA PO; +MELA3TAB59 PO; -OXYB5TAB2 PO; +OXYB5TAB3 PO
[2019-04-17] VITALS (7 sets, daily range): BP systolic 134–155; BP diastolic 73–96
[2019-04-17 01:18] LABS: HEMATOCRIT 42.5 % (36.0-47.0); HEMOGLOBIN 13.8 g/dl (12.0-15.5); MEAN CORPUSCULAR HEMOGLOBIN 29.6 pg (27.0-33.0); MEAN CORPUSCULAR HGB CONC 32.5 g/dl (32.0-36.5); MEAN CORPUSCULAR VOLUME 91.2 fl (80.0-96.0); PLATELET COUNT, AUTOMATED 176 10^3/uL (150-450); RED BLOOD COUNT 4.66 10^6/uL (4.00-5.40); WHITE BLOOD COUNT 5.7 10^3/uL (4.0-10.0)
[2019-04-17] MEDS ORDERED: MELA3TAB49 PO (01:42)
[2019-04-17] MEDS ORDERED: SERO200T PO (01:42)
[2019-04-17] MEDS ORDERED: SERO400T PO (01:42)
[2019-04-17] MEDS ORDERED: CLON0.5T17 PO (01:42)
[2019-04-17] MEDS ORDERED: PATIENT COMMENTS (01:47)
[2019-04-17] MEDS ORDERED: LATU40TA PO (01:50)
[2019-04-17 01:59] LABS: ACETAMINOPHEN LEVEL < 2.0 UG/ML (10.0-30.0); ALBUMIN 3.8 GM/DL (3.2-5.2); ALT/SGPT 41 U/L (12-78); BILIRUBIN,DIRECT < 0.1 MG/DL (0.0-0.2); BILIRUBIN,TOTAL 0.4 MG/DL (0.2-1.0); BLOOD UREA NITROGEN 24 MG/DL (7-18); CALCIUM LEVEL 9.2 MG/DL (8.8-10.2); CARBON DIOXIDE LEVEL 26 MEQ/L (21-32); CHLORIDE LEVEL 106 MEQ/L (98-107); CREATININE FOR GFR 1.03 MG/DL (0.55-1.30); ETHYL ALCOHOL (ETHANOL) < 0.003 % (0.000-0.010); GLOMERULAR FILTRATION RATE 57.4 (>45); GLUCOSE, FASTING 106 MG/DL (70-100); POTASSIUM SERUM 3.9 MEQ/L (3.5-5.1); SALICYLATE LEVEL < 1.7 MG/DL (5.0-30.0); SODIUM LEVEL 140 MEQ/L (136-145); TOTAL PROTEIN 7.1 GM/DL (6.4-8.2)
[2019-04-17] MEDS ORDERED: amLODIPine 5 MG TAB PO SCH (09:00)
[2019-04-17] MEDS: LURASIDONE HCL 40 MG TAB (LATUDA) PO SCH (09:50)
[2019-04-17] MEDS: DOCUSATE SODIUM 100 MG CAP PO SCH ×2 (09:50→19:36)
[2019-04-17] MEDS: buPROPion **XL** TABLET 150MG (WELLBUTRIN XL) PO SCH (09:50)
[2019-04-17] MEDS: PANTOPRAZOLE 40MG TAB (PROTONIX) PO SCH (09:50)
[2019-04-17] MEDS: MULTIVITAMINS/MINERALS THERAP 1 TAB PO SCH (09:50)
[2019-04-17] MEDS: HEPARIN SOD (PORCINE) 5000 UNITS/ML VIAL SC SCH ×2 (09:51→19:36)
--- NOTE | 2019-04-17 22:14 | HPEPDOC ---
General Date of Admission 04/17/19 Date of Service: Apr 17, 2019 Chief Complaint The patient is a 64-year-old female admitted with a reason for visit of Cardiac Problem. Source: Patient, Family, RN/MD, Old records Exam Limitations: No limitations History of Present Illness 64 year old female with PMH of Hypertension, Bipolar disorder, Depression, uri nary incontinence, adjustment disorder with disruption of mood and conduct, benzodiazepine use disorder, Systolic CHF with EF of 45% to 50%, diastolic dysfunction grade 1 called the EMS today saying that she was having a bad reaction to one of her medications. SHe was discharged from [facility] on 04/15/19 when her seroquel was stopped, her klonapin was stopped and her Depakote was stopped. She was started on latuda and melatonin. During triage she was falling asleep as per the nurses. As per MD she was very somnolent throughout her ED stay. On my interview Patient was somnolent but easily arousable, she complained of dry mouth and said she was very sleepy. She said she was ok during the thanksgiving and she and her cooked the [employer] dinner. Though she was in the mental health unit. new the name of the hospital. Said she took her welbutrin and seroquel but could not find the klonapin bottle so did not take it. She could not tell if she took the Latuda or not. She was falling asleep during my interview. She was admitted for toxic metabolic encephalopathy. Unsure if it was an intentional drug overdose or not. Patient too somnolent to answer questions. Will have to assess again once she is more awake. Home Medications Scheduled Amlodipine Besylate (Amlodipine Besylate) 5 Mg Tablet, 5 MG PO DAILY, (Reported) Bupropion Hcl (Bupropion Xl) 150 Mg Tab, 300 MG PO DAILY, (Reported) Calcium Carbonate/Vitamin D3 (Calcium 600-Vit D3 800 Tablet) 1 Each Tablet, 1 TAB PO DAILY, (Reported) Clonazepam (Clonazepam) 0.5 Mg Tab.rapdis, 0.5 MG PO BID, (Reported) Glucosamine/Chondr López A Sod (Cidaflex Tablet) 1 Each Tablet, 1 TAB PO DAILY, (Reported) Lurasidone Hydrochloride (Latuda) 40 Mg Tablet, 40 MG PO DAILY, (Reported) Melatonin (Melatonin) 3 Mg Tab.rapdis, 3 MG PO QPM, (Reported) Multivitamins (Thera M Plus Tablet) 1 Tab Tab, 1 TAB PO DAILY, (Reported) Pantoprazole Sodium (Pantoprazole Sodium) 40 Mg Tablet.dr, 40 MG PO DAILY, (Reported) Quetiapine Fumarate (Seroquel) 200 Mg Tablet, 200 MG PO QAM, (Reported) Quetiapine Fumarate (Seroquel) 400 Mg Tablet, 400 MG PO QPM, (Reported) Miscellaneous Medications [Patient Comments] , (Reported) PATIENT HAD DIFFICULTY STAYING AWAKE FOR MEDICAION DISCUSSION. Allergies Coded Allergies: No Known Allergies (Unverified , 01/04/19) Past Medical History Medical History Hypertension, Bipolar disorder, Depression, urinary incontinence, adjustment disorder with disruption of mood and conduct, benzodiazepine use disorder, Systolic CHF with EF of 45% to 50%, diastolic dysfunction grade 1. Surgical History Patient had a tonsillectomy, adenoidectomy Family History Mother in her 80s with seizures, skin cancer, had a pacemaker placed. One sister, who is three years older, with diabetes. Social History * Smoker: former Smoker Alcohol: occationally Drugs: denies A-FIB/CHADSVASC A-FIB History Current/History of A-Fib/PAF?: No Review of Systems Constitutional: Denies: Chills, Fever, Night Sweats Eyes: Denies: Pain, Vision change ENT: Denies: Head Aches, Ear Pain, Dysphagia Skin: Denies: Rash, Lesions, Breakdown Pulmonary: Denies: Dyspnea, Cough Cardiovascular: Reports: Palpitations; Denies: Chest Pain, Orthopnea, Paroxysmal Noc. Dyspnea, Lt Headedness Physical Examination General Exam: Positive: Cooperative, No Acute Distress, Other (somnolent but easily arousable.) Eye Exam: Positive: Conjunctiva & lids normal, EOMI ENT Exam: Positive: Atraumatic, Mucous membr. moist/pink, Pharynx Normal Neck Exam: Positive: Supple; Negative: JVD, thyromegaly Chest Exam: Positive: Clear to auscultation, Normal air movement Heart Exam: Positive: Rate Normal, Regular Rhythm, Normal S1, Normal S2; Negative: Murmurs, Rubs Telemetry: Positive: No significant arrhythmia Abdomen Exam: Positive: Normal bowel sounds, Soft; Negative: Tenderness, Hepatospenomegaly Extremity Exam: Positive: Edema (trace); Negative: Clubbing, Cyanosis Skin Exam: Positive: Nl turgor and temperature; Negative: Breakdown, Lesion Neuro Exam: Positive: Normal Tone, Reflexes 2+ Vital Signs Vital Signs Date Time Temp Pulse Resp B/P (MAP) Pulse Ox O2 Delivery O2 Flow Rate FiO2 04/16/19 23:57 96.3 104 18 135/85 (102) 95 Room Air Laboratory Data Labs 24H Laboratory Tests 2 04/17/19 01:12: Nucleated Red Blood Cells % (auto) 0.0 CBC/BMP Laboratory Tests 04/17/19 01:12 Assessment/Plan 64 year old female with PMH of Hypertension, Bipolar disorder, Depression, urinary incontinence, adjustment disorder with disruption of mood and conduct, benzodiazepine use disorder, Systolic CHF with EF of 45% to 50%, diastolic dysfunction grade 1 called the EMS today saying that she was having a bad reaction to one of her medications. She was discharged from [facility] on 04/15/19 when her seroquel was stopped, her klonapin was stopped and her Depakote was stopped. She was started on latuda and melatonin. Unsure if pateint took her l atuda on 04/16 or not. She did get a dose in [facility] on 04/15. She was extremely somnolent on admission and i was unable to dcern if this was a intentional drug overdose with siuicidal intent or not. She is admitted for toxic metabolic encephalopathy. Toxic metabolic encephalopathy Will have to evaluate if patient suicidal or not when more awake. hold seroquel and klonapin. will continue welbutrin and latuda when more awake EKG no qtc prolongation. one on one obs. Hypertension continue amlodipine GERD continue PPI Psychiatry will continue latuda and welbutrin when more awake. Plan / VTE VTE Prophylaxis Ordered?: Yes ISHA DOYLE MD Apr 17, 2019 01:31
[2019-04-18 05:51] LABS: BASO # 0.1 10^3/uL (0.0-0.2); BASO % 1.7 % (0.0-1.0); EOS # 0.1 10^3/uL (0.0-0.5); HEMATOCRIT 46.3 % (36.0-47.0); HEMOGLOBIN 14.9 g/dl (12.0-15.5); LYMPH # 1.5 10^3/uL (1.5-5.0); LYMPH % 32.4 % (24.0-44.0); MEAN CORPUSCULAR HEMOGLOBIN 29.3 pg (27.0-33.0); MEAN CORPUSCULAR HGB CONC 32.2 g/dl (32.0-36.5); MEAN CORPUSCULAR VOLUME 91.1 fl (80.0-96.0); MONO # 0.6 10^3/uL (0.0-0.8); MONO % 13.3 % (0.0-5.0); NEUTROPHILS # 2.3 10^3/uL (1.5-8.5); NEUTROPHILS % 49.9 % (36.0-66.0); PLATELET COUNT, AUTOMATED 226 10^3/uL (150-450); RED BLOOD COUNT 5.08 10^6/uL (4.00-5.40); WHITE BLOOD COUNT 4.6 10^3/uL (4.0-10.0)
[2019-04-18 06:00] VITALS: BP 148/82
[2019-04-18 06:14] LABS: CREATININE FOR GFR 1.1 MG/DL (0.55-1.30); GLOMERULAR FILTRATION RATE 53.2 (>45)
--- NOTE | 2019-04-18 07:25 | ECGEPIP ---
[facility] - ED Test Date: 2019-04-17 Pat Name: LOYD SMITH Department: Room: [place] [address] Gender: Female Obstetrics Tech: marlene : 1955 Requested By: MESHA ARMENTA Order Number: [id number] Reading MD: Aryan Smith Measurements Intervals [place] Rate: 93 P: 18 WI: 183 QRS: -2 QRSD: 102 T: 32 QT: 381 QTc: 476 Interpretive Statements SINUS RHYTHM LEFT VENTRICULAR HYPERTROPHY AND ST-T CHANGE Prolonged QTc interval Electronically Signed on 04-18-2019 7:25:41 EST by Aryan Smith
[2019-04-18] MEDS ORDERED: AMLO10TA5 PO (07:41)
[2019-04-18] MEDS: DOCUSATE SODIUM 100 MG CAP PO SCH (08:56)
[2019-04-18] MEDS: MULTIVITAMINS/MINERALS THERAP 1 TAB PO SCH (08:56)
[2019-04-18] MEDS: PANTOPRAZOLE 40MG TAB (PROTONIX) PO SCH (08:56)
[2019-04-18] MEDS: buPROPion **XL** TABLET 150MG (WELLBUTRIN XL) PO SCH (08:57)
[2019-04-18] MEDS: LURASIDONE HCL 40 MG TAB (LATUDA) PO SCH (08:57)
[2019-04-18] MEDS: HEPARIN SOD (PORCINE) 5000 UNITS/ML VIAL SC SCH (08:57)
[2019-04-18] MEDS ORDERED: amLODIPine 10 MG TAB PO SCH (09:00)
[2019-04-18 10:00] VITALS: BP 180/90
[2019-04-18] MEDS: ISOSORBIDE DIN (ISORDIL) 10 MG TAB PO SCH ×2 (10:00→12:00)
--- NOTE | 2019-04-18 13:15 | MHCRPDOC ---
[facility] Consultation Consultation DATE OF CONSULTATION: 04/18/19 CONSULTATION REQUESTED BY: Dr. Hyatt REASON FOR CONSULTATION: [id number] ideation RELEVANT HISTORY: The patient is a 64 year old female with a history of bipolar disorder, who was recently discharged from [facility]. She was admitted ths time because, she says, she has been taking medication for her heart and it makes her heart flutter. she says she didn't try to overdose this time, however, she did it not too long ago, when she was admitted to [facility] and was undr Dr. Nova's care. PAST PSYCHIATRIC HISTORY: As per previous admission notes (from Dr. Nova):"The patient has a reported history of bipolar disorder diagnosed by her outpatient psychiatrist Dr. Hernandez. She is currently on a confusing mix of Wellbutrin, Klonopin, Depakote and Seroquel, previously trying Latuda and a num gucci of other medications. She has been working with Dr. Hernandez for 30 years and denies any other psychiatric admissions, suicide attempts. She has no current psychotherapy." PAST MEDICAL HISTORY: GERD, HTN, urinary incontinence, CHF FAMILY HISTORY: As per previous notes;" 1. Mother in her 80s with seizures, skin cancer, had a pacemaker placed. 2. One sister, who is three years older, with diabetes." PERSONAL AND SOCIAL HISTORY: The patient was born and raised in [place], but once she her , moved to [place] and has been living in here for 40 years. Resides in: [place] Marital Status: M Children: Two children, one son and one daughter. Her daughter lives with her. Employment: She has worked in the past, but is not currently employed. 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 SUBSTANCE ABUSE HISTORY: Smoking:She was a smoker but she quit several years ago. ETOH: She drinks 2-3 glasses of wine in one week Illicit Drugs: None, but she takes Klonopin, which is a legal medication, but there were concerns while she was at [facility] that she could have developed some dependance from this medication. LEGAL HISTORY: None MENTAL STATUS EXAMINATION: Patient is a 64-year old female, who is alert, cooperative, clean, dressed in hospital gown. Speech is Intact, normal rate, tone, rhythm and volume. spontaneous and fluent Language skills are good. Thought processes including: linear, coherent.. Thought content: future orientated, she has plans for the future, once her husb and passes away but she has depressed/anxious thoughts because she is already grieving her who has a glioblastoma.. Abstract reasoning, and computation: Good Description of associations: Not loose, they are intact Description of abnormal or psychotic thoughts: None. Judgment: Good. Insight: Good. Orientation to x 3. Recent and remote memory: Intact. Attention span and concentration: Good. Language: Not impaired. . Fund of knowledge: Average Mood: Anxious/sad Affect: Congruent with mood, but it is reactive, she laughs if I joke with her. Appropriate, full range. DIAGNOSIS: Diagnoses Adjustment disorder with disruption of mood and conduct. Benzodiazepine use disorder. Unspecified bipolar disorder, currently in remission. PLAN: 1. Patient is not suicidal at this time. she said she had a "great conversation with Dr. Hyatt", for about an hour and after an hour of kj, she was able to see things under a different light. she tells me that once her passes away she has plans to move to her friend's house ( they have been friends for 30 years) who lives 3 blocks away from her. She says she has the support of her daughter. She says that once this happens she would be willing to go back to work. 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 She says that she will try to make every day a happy day with her , enjoy every single minute of his life and adamantly denies SI at this time. 2. She doesn't need to be admitted to [facility] at this time, she is not suicidal, not homicidaland not psychotic. she says she will go to her appointment to Dr. Hernandez's office tomorrow afternoon at 2:30 P.M. She says she has seen him for 30 years and she feels safe under his care. She can be discharged home if Dr. Hyatt agrees and considers that she's medically clear. Vital Signs Vital Signs Date Time Temp Pulse Resp B/P (MAP) Pulse Ox O2 Delivery O2 Flow Rate FiO2 04/18/19 10:00 180/90 04/18/19 09:00 93 04/18/19 06:00 98.7 17 95 Room Air Laboratory Data 24H Labs Laboratory Tests 2 04/18/19 05:08: Immature Granulocyte % (Auto) 0.7, Neutrophils (%) (Auto) 49.9, Lymphocytes (%) (Auto) 32.4, Monocytes (%) (Auto) 13.3H, Eosinophils (%) (Auto) 2.0, Basophils (%) (Auto) 1.7H, Neutrophils # (Auto) 2.3, Lymphocytes # (Auto) 1.5, Monocytes # (Auto) 0.6, Eosinophils # (Auto) 0.1, Basophils # (Auto) 0.1, Nucleated Red Blood Cells % (auto) 0.0, Anion Gap 5L, Glomerular Filtration Rate 53.2, Calcium Level 10.0 Home Medications Current Medications Current Medications Medications (Trade) Dose Ordered Sig/Terence Route PRN Reason Start Time Stop Time Status Last Admin Dose Admin Amlodipine Besylate (Norvasc) 5 mg DAILY PO 04/17/19 09:00 04/18/19 07:40 DC 04/17/19 09:51 Amlodipine Besylate (Norvasc) 10 mg DAILY PO 04/18/19 09:00 04/18/19 09:00 Bupropion HCl (Wellbutrin Xl) 300 mg DAILY PO 04/17/19 09:00 04/18/19 08:57 Docusate Sodium (Colace) 100 mg BID PO 04/17/19 09:00 04/18/19 08:56 Heparin Sodium (Porcine) (Heparin) 5,000 units Q12H SC 04/17/19 09:00 04/18/19 08:57 Home Med (Med Rec Complete!) ASDIRECTED XX 04/17/19 02:00 04/17/19 01:57 DC Isosorbide Dinitrate (Isordil) 10 mg TID@07,12,17 PO 04/18/19 07:00 04/18/19 10:00 Lurasidone HCl (Latuda) 40 mg DAILY PO 04/17/19 09:00 04/18/19 08:57 Multivitamins (Theragram-M) 1 tab DAILY PO 04/17/19 09:00 04/18/19 08:56 Pantoprazole Sodium (Protonix) 40 mg DAILY PO 04/17/19 09:00 04/18/19 08:56 Scheduled Amlodipine Besylate (Amlodipine Besylate) 10 Mg Tablet, 10 MG PO DAILY Bupropion Hcl (Bupropion Xl) 150 Mg Tab, 300 MG PO DAILY, (Reported) Calcium Carbonate/Vitamin D3 (Calcium 600-Vit D3 800 Tablet) 1 Each Tablet, 1 TAB PO DAILY, (Reported) Glucosamine/Chondr López A Sod (Cidaflex Tablet) 1 Each Tablet, 1 TAB PO DAILY, (Reported) Lurasidone Hydrochloride (Latuda) 40 Mg Tablet, 40 MG PO DAILY, (Reported) Melatonin (Melatonin) 3 Mg Tab.rapdis, 3 MG PO QPM, (Reported) Multivitamins (Thera M Plus Tablet) 1 Tab Tab, 1 TAB PO DAILY, (Reported) Pantoprazole Sodium (Pantoprazole Sodium) 40 Mg Tablet.dr, 40 MG PO DAILY, (Reported) Miscellaneous Medications [Patient Comments] , (Reported) PATIENT HAD DIFFICULTY STAYING AWAKE FOR MEDICAION DISCUSSION. Allergies Coded Allergies: No Known Allergies (Unverified , 01/04/19) KEN BENITEZ MD Apr 18, 2019 12:53
[2019-04-18 13:21] VITALS: BP 138/82
[2019-04-18] MEDS ORDERED: SELF1KIT MC (13:22)
[2019-04-18 14:00] VITALS: BP 125/72
--- NOTE | 2019-04-18 14:31 | IPN ---
DATE OF SERVICE: 04/18/2019 The patient continues to have suicidal ideation per sitter at the bedside. The patient says her has terminal brain tumor, and "I can't live without him." No complaints of chest pain, pressure, tightness, shortness of breath, palpitations, lightheadedness, or dizziness. Temperature 98.7, pulse 91, respiratory rate 17, blood pressure 148/82, 95% on room air. Generally, the patient is awake, alert, oriented times three, answering questions appropriately. Lungs are clear to auscultation. No wheezing, rales, or rhonchi. Heart: S1, S2, sinus rhythm. Abdomen: Is soft, nontender, nondistended. Normoactive bowel sounds. Extremities: No clubbing, cyanosis, or any pitting edema. LABORATORY DATA: White count 4.6, hemoglobin 14, hematocrit 46, platelet count 226. Sodium 139, potassium 4, chloride 104, bicarbonate 30, BUN 17, creatinine 1.1, glucose of 87. ASSESSMENT AND PLAN: A 64-year-old with diastolic dysfunction grade I, ejection fraction (EF) 50%, depression, bipolar, adjustment disorder, disruption of mood and conduct, benzodiazepine use. On Latuda and melatonin. Presented with altered mental status and suicidal ideation. IMPRESSION: 1. Suicidal ideation. Psychiatrist has been consulted to clear the patient versus inpatient mental health unit admission. 2. Metabolic encephalopathy. On home medications. 3. Hypertension. Norvasc increased to 5 twice a day and isosorbide added due to recent acute kidney injury, angiotensin-converting enzyme (AUGUST) inhibitor has not been restarted. Beta blockade is not appropriate due to depression. 4. Reflux. On proton pump inhibitor (PPI). DISPOSITION: Defer to psychiatrist. Dr. Simmons has been consulted. [facility]
[2019-04-27] MEDS ORDERED: ROBILIQ13 PO (18:36)
[2019-04-27] MEDS ORDERED: AMLO10TA5 PO (18:36)
--- NOTE | 2019-05-25 10:56 | DSES ---
DATE OF ADMISSION: 04/17/2019 DATE OF DISCHARGE: 04/18/2019 PSYCHIATRIST: Aviva Simmons MD DISCHARGE DIAGNOSES: 1. Adjustment disorder with disruption of mood and conduct. 2. Benzodiazepine use disorder. 3. Unspecified bipolar disorder, in remission. 4. Suicidal ideation. DISCHARGE MEDICATIONS: - calcium/vitamin D one tablet daily - multivitamin one tablet daily - bupropion 300 mg nightly - Protonix 40 mg nightly DISCHARGE INSTRUCTIONS: Immediate followup with psychiatrist, Dr. Hernandez, within 5 days of hospital discharge. The patient was cleared by psychiatrist, Dr. Simmons, for hospital discharge. Was not felt to be a suicidal risk. HOSPITAL COURSE: A 64-year-old female who presented to the emergency room after having a bad reaction to one of her medications. She was recently on Seroquel, Klonopin, and Depakote but was discontinued and was started on Latuda and melatonin. The patient had altered mental status and was somnolent throughout her emergency room visit and was admitted. She complained of dry mouth and complained of sleepiness. During this hospital stay, she had mentioned that she was under severe stress with her dying of cancer, and she felt that she could not live without him. She expressed some suicidal thoughts. She was seen by a psychiatrist, Dr. Simmons, who recommended discharge home and immediate followup with Dr. Hernandez. She was initially admitted for toxic metabolic encephalopathy secondary to Latuda and melatonin. Both of these were discontinued during her hospital stay, and her mentation returned back to baseline. The patient's electrocardiogram (EKG) showed no QTc prolongation. She was continued on amlodipine for her hypertension and her proton pump inhibitor (PPI) for her reflux. The patient had been seen by psychiatrist, Dr. Hernandez, for 30 years. Denies any other psychiatric admissions or suicide attempts in the past and currently not undergoing psychotherapy. 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 Once she was medically cleared, the psychiatrist felt that she could be discharged home. DISCHARGE PHYSICAL EXAMINATION: Temperature 98.5, pulse 105, respiratory rate 18, blood pressure 125/72, 97% on room air. Generally, the patient is awake, alert, oriented times three, answering questions Appropriately. No respiratory distress. Lungs are clear to auscultation. No wheezing, rales, or rhonchi. Heart: S1, S2, sinus tachycardia. Abdomen: Is obese, soft, nontender. Extremities: Had no pitting edema. LABORATORY DATA: White count 4.6, hemoglobin 14, hematocrit 46, platelet count 226. Sodium 139, potassium 4, chloride 104, bicarbonate 30, BUN 17, creatinine 1.1, glucose of 87. TIME SPENT ON DISCHARGE: 30 minutes. MTDD
== END 2019-04-18 14:08 | disposition home or self-care (01) | DRG 71 ==
LOC: M ED 23:45 → M ED INP 04-17 02:49 → M ICU 04-17 04:29 → M MSPAV 04-17 12:50
PROVIDERS: ADMIT Internal Medicine Nephrology; ATTEND Internal Medicine Nephrology
DX: G93.41 Metabolic encephalopathy (principal); F13.20 Sedative, hypnotic or anxiolytic dependence, uncomplicated; I50.20 Unspecified systolic (congestive) heart failure; R45.851 Suicidal ideations; F43.25 Adjustment disorder with mixed disturbance of emotions and conduct; I11.0 Hypertensive heart disease with heart failure; F31.9 Bipolar disorder, unspecified; R32 Unspecified urinary incontinence; Z79.899 Other long term (current) drug therapy; Z87.891 Personal history of nicotine dependence; K21.9 Gastro-esophageal reflux disease without esophagitis; T50.905A Adverse effect of unspecified drugs, medicaments and biological substances, initial encounter

== ENCOUNTER 2019-04-22 00:09 | Observation (INO) | payer MEDICARE ==
[~2019-04-22] VITALS: Ht 167.6 cm; Wt 84.1 kg
[~2019-04-22 00:09] MED LIST changes: +AMLO10TA5 PO; +CLON0.5T17 PO; +LATU40TA PO; +MELA3TAB49 PO; +SELF1KIT MC; +SERO400T PO
[2019-04-22] MEDS ORDERED: NITROGLYCERIN 0.4 MG SUBL TABLET As Ordered ONE (00:44)
[2019-04-22] MEDS ORDERED: NITROGLYCERIN 0.4 MG SUBL TABLET SL PRN (00:45)
[2019-04-22 00:49] LABS: BASO # 0.1 10^3/uL (0.0-0.2); BASO % 1.1 % (0.0-1.0); EOS # 0.1 10^3/uL (0.0-0.5); EOS % 1.4 % (0.0-3.0); HEMATOCRIT 41.5 % (36.0-47.0); HEMOGLOBIN 13.5 g/dl (12.0-15.5); LYMPH # 1.5 10^3/uL (1.5-5.0); LYMPH % 23.5 % (24.0-44.0); MEAN CORPUSCULAR HEMOGLOBIN 29.8 pg (27.0-33.0); MEAN CORPUSCULAR HGB CONC 32.5 g/dl (32.0-36.5); MEAN CORPUSCULAR VOLUME 91.6 fl (80.0-96.0); MONO # 1.1 10^3/uL (0.0-0.8); MONO % 16.3 % (0.0-5.0); NEUTROPHILS # 3.7 10^3/uL (1.5-8.5); NEUTROPHILS % 57.4 % (36.0-66.0); PLATELET COUNT, AUTOMATED 240 10^3/uL (150-450); RED BLOOD COUNT 4.53 10^6/uL (4.00-5.40); WHITE BLOOD COUNT 6.5 10^3/uL (4.0-10.0)
[2019-04-22 01:05] LABS: INR 1.11
[2019-04-22 01:17] LABS: ALBUMIN 3.8 GM/DL (3.2-5.2); ALT/SGPT 45 U/L (12-78); BILIRUBIN,DIRECT 0.1 MG/DL (0.0-0.2); BILIRUBIN,TOTAL 0.4 MG/DL (0.2-1.0); BLOOD UREA NITROGEN 19 MG/DL (7-18); CARBON DIOXIDE LEVEL 28 MEQ/L (21-32); CHLORIDE LEVEL 102 MEQ/L (98-107); CPK CREATINE PHOSPHOKINASE 632 U/L (26-192); CREATININE FOR GFR 0.92 MG/DL (0.55-1.30); FREE T4 1.17 NG/DL (0.76-1.46); GLOMERULAR FILTRATION RATE > 60.0 (>45); GLUCOSE, FASTING 110 MG/DL (70-100); MAGNESIUM LEVEL 2.1 MG/DL (1.8-2.4); MB/CK RELATIVE INDEX 1.74 (< OR =4); PHOSPHORUS LEVEL 2.7 MG/DL (2.5-4.9); POTASSIUM SERUM 3.6 MEQ/L (3.5-5.1); SODIUM LEVEL 139 MEQ/L (136-145); TOTAL PROTEIN 7.2 GM/DL (6.4-8.2); TROPONIN I < 0.02 NG/ML (< 0.10)
[2019-04-22] MEDS ORDERED: LABETALOL HCL 100 MG/20 ML VIAL IV STA (01:21)
[2019-04-22] MEDS ORDERED: ISOVUE-370 76% 100ML VIAL (Q9967) As Ordered ONE (01:23)
[2019-04-22] MEDS ORDERED: ACET-897 PO (01:56)
[2019-04-22] MEDS ORDERED: QUET200T2 PO (01:56)
[2019-04-22] MEDS ORDERED: GLUCTAB6 PO (01:56)
[2019-04-22] MEDS ORDERED: AMLO10TA5 PO ×2 (01:56→11:12)
[2019-04-22] MEDS ORDERED: ROBI1LIQ PO (01:56)
[2019-04-22] MEDS ORDERED: DEPA500T2 PO (01:56)
[2019-04-22] MEDS ORDERED: LATU20TA PO (01:56)
[2019-04-22] MEDS ORDERED: MELA3TAB41 PO (01:56)
--- NOTE | 2019-04-22 02:25 | REPVR ---
PROCEDURE INFORMATION: Exam: CT Angiography Chest With Contrast Exam date and time: 04/22/2019 1:34 AM Age: 64 years old Clinical history: Chest pain; Additional info: Chest pain, SOB TECHNIQUE: Imaging protocol: Computed tomographic angiography of the chest with intravenous contrast. 3D rendering: MIP reconstructed images were created and reviewed. Radiation optimization: All CT scans at this facility use at least one of these dose optimization techniques: automated exposure control; mA and/or kV adjustment per patient size (includes targeted exams where dose is matched to clinical indication); or iterative reconstruction. Contrast material: ISOVUE 370; Contrast volume: 75 ml; Contrast route: IV; COMPARISON: CT Chest with contrast 11/14/2016 12:55 PM FINDINGS: Pulmonary arteries: Normal. No pulmonary emboli. Aorta: Unremarkable. No aortic aneurysm. No aortic dissection. Lungs: Small area of volume loss with scarring in the medial right lower lobe. Scattered patchy groundglass opacities throughout both lungs. No other air space consolidation. No masses. Airways are clear. Pleural space: Stable mild pleural thickening. No pleural effusion or pneumothorax. Heart: Unremarkable. No cardiomegaly. No pericardial effusion. Lymph nodes: Unremarkable. No enlarged lymph nodes. Bones/joints: Skeletal degenerative changes are noted. Soft tissues: Unremarkable. IMPRESSION: 1. No evidence of embolism. 2. Nonspecific groundglass opacities in both lungs. Differential diagnostic considerations include atypical infection, interstitial pneumonitis, and edema, among other etiologies. 3. Chronic scarring in the right lung base. Electronically signed by: Willie Flores On 04/22/2019 02:24:33 AM
--- NOTE | 2019-04-22 02:42 | HPEPDOC ---
[facility] Medical History & Physical Date of Admission Apr 22, 2019 Date of Service: Apr 22, 2019 Primary Care Physician: WARREN CARDENAS MD [facility] Attending Physician: SARAH DANIELSON MD History and Physical TIME OF SERVICE: 2:50 AM CHIEF COMPLAINT: Chest pain HISTORY OF PRESENT ILLNESS: This is a 64 year old female who presents with complaints of central nonradiating chest pain that feels like indigestion. The pain began at around 11 PM last night. Associated symptoms include intermittent palpitations with dyspnea for 3 weeks and one episode of nonbloody emesis. She denies having the fevers or chills. She was discharged from the hospital a few days ago and has not taken her medications because of problems getting her prescriptions filled because she is enrolled in the "in sync program". Per discussion with Dr. Castillo her initial blood pressure was 243/113 and improved to 174/100 after receiving IV labetalol and nitroglycerin. She also received aspirin. REVIEW OF SYSTEMS: 12 point review of systems negative except as listed in HPI PAST MEDICAL/ SURGICAL HISTORY: Bipolar disorder/depression. Adjustment disorder with disruption of mood and conduct. Chronic Hypertension Chronic systolic/diastolic CHF (EF 45-50%). Status post tonsillectomy with adenoidectomy SOCIAL HISTORY: She quit smoking Her has been diagnosed with GBM FAMILY HISTORY: Father had CHF. Mother had seizures skin cancer and a pacemaker ALLERGIES: Please see below. HOME MEDICATIONS: Please see below. PHYSICAL EXAMINATION: VITAL SIGNS: Please see below. GENERAL APPEARANCE: Well-nourished, well-developed, not in apparent distress HEENT: Normocephalic, atraumatic. Mucous membranes moist and pink CARDIOVASCULAR: Regular rate and rhythm. No murmurs, rubs or gallops LUNGS:. Clear to auscultation bilaterally on room air ABDOMEN: Positive bowel sounds. Abdomen soft and nontender on palpation MUSCULOSKELETAL: Range of motion intact in all 4 extremities NEUROLOGICAL:. Cranial nerves II-12 are grossly intact. Speech is not dysarthric PSYCHIATRIC: Alert and oriented to person, place and time, able to understand and follow commands, slightly teary during parts of exam LABORATORY DATA: See below. IMAGING: Chest x-ray appears unremarkable but the final report is pending. CT of the chest " IMPRESSION: 1. No evidence of embolism. 2. Nonspecific groundglass opacities in both lungs. Differential diagnostic considerations include atypical infection, interstitial pneumonitis, and edema, among other etiologies. 3. Chronic scarring in the right lung base. " MICROBIOLOGY: Please see below. ASSESSMENT: Ms. García is a 64 old with a past medical history of bipolar disorder, depr ession, systolic /diastolic dysfunction, and chronic hypertension who will be admitted for management of hypertensive urgency in the setting of missing her medications for a few days. PLAN: 1. Hypertensive Urgency The only related symptom she has is chest pain. Acute elevation in her blood pressure was likely due to missing medications for a few days because of financial issues EKG normal sinus rhythm with a heart rate of 78 Her troponin, potassium, creatinine, GFR, TSH and calcium are all within normal limits. Her PCP has given her information about low salt diet and counseled her about the importance of weight loss; the patient reports she's lost 10 pounds recently. Plan: PCU / will aim to lower BP by 25% w/in the first 2-4 hours with target BP of <160/100 / resume home meds / low salt diet / PFS consult for assistance in obtaining meds 2. Chest pain Likely due to uncontrolled blood pressure. Will rule out ACS Her most recent echo was in March. Plan: Telemetry/follow up to more troponins, lipid panel and A1c/ start aspirin 81 mg daily/Tylenol and nitroglycerin when necessary for chest pain 3. Bipolar disorder/depression. On: Resume home meds 4. Chronic systolic/diastolic CHF (EF 45-50%) Clinically euvolemic. Plan: Resume home meds DVT prophylaxis with SCDs. Disposition likely home after less than 2 midnight stay Vital Signs Vital Signs Date Time Temp Pulse Resp B/P (MAP) Pulse Ox O2 Delivery O2 Flow Rate FiO2 04/22/19 02:15 81 174/100 (124) 93 04/22/19 00:20 98.8 18 Laboratory Data Labs 24H Laboratory Tests 2 04/22/19 00:30: Immature Granulocyte % (Auto) 0.3, Neutrophils (%) (Auto) 57.4, Lymphocytes (%) (Auto) 23.5L, Monocytes (%) (Auto) 16.3H, Eosinophils (%) (Auto) 1.4, Basophils (%) (Auto) 1.1H, Neutrophils # (Auto) 3.7, Lymphocytes # (Auto) 1.5, Monocytes # (Auto) 1.1H, Eosinophils # (Auto) 0.1, Basophils # (Auto) 0.1, Nucleated Red B lood Cells % (auto) 0.0, Prothrombin Time 14.0, Prothromb Time International Ratio 1.11, Activated Partial Thromboplast Time 32.0, Anion Gap 9, Glomerular Filtration Rate > 60.0, Calcium Level 10.0, Phosphorus Level 2.7, Magnesium Level 2.1, Total Bilirubin 0.4, Direct Bilirubin 0.1, Aspartate Amino Transf (AST/SGOT) 47H, Alanine Aminotransferase (ALT/SGPT) 45, Alkaline Phosphatase 93, Total Creatine Kinase 632H, Creatine Kinase MB 11.0H, Creatine Kinase MB Relative Index 1.74, Troponin I < 0.02, Total Protein 7.2, Albumin 3.8, Albumin/Globulin Ratio 1.12, Thyroid Stimulating Hormone (TSH) 1.350, Free Thyroxine 1.17 CBC/BMP Laboratory Tests 04/22/19 00:30 Home Medications Scheduled Acetaminophen (Tylenol Extra Strength) 500 Mg Tablet, 1,000 MG PO QHS Amlodipine Besylate (Amlodipine Besylate) 10 Mg Tablet, 10 MG PO QHS Bupropion Hcl (Bupropion Xl) 150 Mg Tab, 300 MG PO QHS Calcium Carbonate/Vitamin D3 (Calcium 600-Vit D3 800 Tablet) 1 Each Tablet, 1 TAB PO QHS Divalproex Sodium (Depakote ER) 500 Mg Tab.er.24h, 500 MG PO QHS Gluc López/Chondro López A/Vit C/Mn (Glucosamine Chondroitin Tab) 1 Each Tablet, 1 TAB PO QHS Lurasidone Hydrochloride (Latuda) 20 Mg Tablet, 60 MG PO QHS Multivitamins (Thera M Plus Tablet) 1 Tab Tab, 1 TAB PO QHS Pantoprazole Sodium (Pantoprazole Sodium) 40 Mg Tablet.dr, 40 MG PO QHS Quetiapine Fumarate (Quetiapine Fumarate) 200 Mg Tablet, 400 MG PO QHS Scheduled PRN Dextromethorphan Hb/Doxylamine (Robitussin Nighttime Cough Dm) 237 Ml Liquid, 20 ML PO Q6H PRN for COUGH Melatonin (Melatonin) 3 Mg Tablet, 3 MG PO QHS PRN for SLEEP Allergies Coded Allergies: No Known Allergies (Unverified , 04/27/19) A-FIB/CHADSVASC A-FIB History Current/History of A-Fib/PAF?: No Current PO Anticoag Therapy: No SARAH DANIELSON MD Apr 22, 2019 02:42
[2019-04-22] MEDS ORDERED: ACETAMINOPHEN TAB 650MG DOSE (2X325MG) PO PRN (02:45)
[2019-04-22 03:40] LABS: CHOLESTEROL LEVEL 280 MG/DL (<200); CHOLESTEROL RISK RATIO 5.833 (<5); HDL CHOLESTEROL 48 MG/DL (>40); LDL CHOLESTEROL 199 MG/DL (<100); NON-HDL-C 232 MG/DL; TRIGLYCERIDES LEVEL 167 MG/DL (<150)
[2019-04-22 03:46] LABS: HEMOGLOBIN A1c 5.4 %
--- NOTE | 2019-04-22 08:09 | REP ---
Clinical: Chest pain . Comparison: 04/10/2019 . Technique: PA and lateral. Findings: The mediastinum and cardiac silhouette are normal. The lung martin are clear and without acute consolidation, effusion, or pneumothorax. The skeletal structures are intact and normal. Impression: 1. No acute cardiopulmonary process. Electronically Signed by Ant Tucker MD 04/22/2019 08:00 A
[2019-04-22] MEDS ORDERED: amLODIPine 10 MG TAB PO ONE (09:00)
[2019-04-22] MEDS ORDERED: ASPIRIN 81 MG CHEW TABLET PO ONE (09:00)
[2019-04-22 10:12] VITALS: BP 168/103
[2019-04-22 10:30] VITALS: BP 193/99
--- NOTE | 2019-04-22 11:11 | DS.PDOC ---
Discharge Summary General Date of Admission Apr 22, 2019 at 00:10 Date of Discharge 04/22/2019 Attending Physician: ROBERTA MORENO MD Discharge Summary PROCEDURES PERFORMED DURING STAY: None ADMITTING DIAGNOSES: 1. Hypertensive urgency DISCHARGE DIAGNOSES: 1. Hypertensive urgency 2. Bipolar disorder/depression. 3. Adjustment disorder with disruption of mood and conduct. 4. Chronic systolic/diastolic CHF (EF 45-50%). COMPLICATIONS/CHIEF COMPLAINT: Chest Pain, Hypertensive Urgency. HISTORY OF PRESENT ILLNESS: 64 year old woman who presented with acute central nonradiating chest pain and intermittent palpitations with dyspnea for 3 weeks and one episode of nonbloody emesis without fevers or chills, in the setting of recent hospital discharged with inability to fill her scripts. HOSPITAL COURSE: In the ED, her initial blood pressure was 243/113 and improved to 174/100 after receiving IV labetalol and nitroglycerin. She also received aspirin. Work up was notable for a non ischemic EKG, negative troponin, unrevealing CXR, CTA without a PE and normal CBC and BMP. She was admitted for observation for hypertensive urgency with normalization of her BP to acceptable range and resumed her amlodipine 10 that she had missed for days. She is now being discharged home with a new script for amlodipine and called [facility] her new preferred pharmacy to make sure she would be able to peanut picker the meds today. DISCHARGE MEDICATIONS: Please see below. ALLERGIES: Please see below. PHYSICAL EXAMINATION ON DISCHARGE: VITAL SIGNS: Please see below. GENERAL APPEARANCE: Well-nourished, well-developed, NAD HEENT: NCAT, PERRLA, EOMI, MMM CARDIOVASCULAR: Regular rate and rhythm. No murmurs, rubs or gallops LUNGS:. Clear to auscultation bilaterally and breathing comfortably on room air ABDOMEN: Positive bowel sounds. Abdomen soft and nontender on palpation MUSCULOSKELETAL: Range of motion intact in all 4 extremities NEUROLOGICAL:. Cranial nerves II-12 are grossly intact. Speech is not dysarthric PSYCHIATRIC: Alert and oriented to person, place and time, able to understand and follow commands, slightly teary during parts of exam LABORATORY DATA: Please see below. IMAGING: Chest x-ray appears unremarkable but the final report is pending. CT of the chest " IMPRESSION: 1. No evidence of embolism. 2. Nonspecific groundglass opacities in both lungs. Differential diagnostic considerations include atypical infection, interstitial pneumonitis, and edema, among other etiologies. 3. Chronic scarring in the right lung base. " PROGNOSIS: Good ACTIVITY: As tolerated DIET: 2g salt DISCHARGE PLAN: Home with PCP follow up DISPOSITION: Home DISCHARGE INSTRUCTIONS: 1. Please peanut picker your amlodipine at [facility] as you indicated this as your new preferred pharmacy. ITEMS TO FOLLOWUP ON OUTPATIENT: 1. Hypertension DISCHARGE CONDITION: Good TIME SPENT ON DISCHARGE: 32 minutes. Vital Signs/I&Os Vital Signs Date Time Temp Pulse Resp B/P (MAP) Pulse Ox O2 Delivery O2 Flow Rate FiO2 04/22/19 10:12 92 168/103 04/22/19 08:00 94 04/22/19 06:16 17 04/22/19 00:20 98.8 Laboratory Data Labs 24H Laboratory Tests 2 04/22/19 00:30: Immature Granulocyte % (Auto) 0.3, Neutrophils (%) (Auto) 57.4, Lymphocytes (%) (Auto) 23.5L, Monocytes (%) (Auto) 16.3H, Eosinophils (%) (Auto) 1.4, Basophils (%) (Auto) 1.1H, Neutrophils # (Auto) 3.7, Lymphocytes # (Auto) 1.5, Monocytes # (Auto) 1.1H, Eosinophils # (Auto) 0.1, Basophils # (Auto) 0.1, Nucleated Red Blood Cells % (auto) 0.0, Prothrombin Time 14.0, Prothromb Time International Ratio 1.11, Activated Partial Thromboplast Time 32.0, Anion Gap 9, Glomerular Filtration Rate > 60.0, Estimated Mean Plasma Glucose 108, Hemoglobin A1c 5.4, Calcium Level 10.0, Phosphorus Level 2.7, Magnesium Level 2.1, Total Bilirubin 0.4, Direct Bilirubin 0.1, Aspartate Amino Transf (AST/SGOT) 47H, Alanine Aminotransferase (ALT/SGPT) 45, Alkaline Phosphatase 93, Total Creatine Kinase 632H, Creatine Kinase MB 11.0H, Creatine Kinase MB Relative Index 1.74, Troponin I < 0.02, Total Protein 7.2, Albumin 3.8, Albumin/Globulin Ratio 1.12, Triglycerides Level 167H, Total Cholesterol 280H, LDL Cholesterol 199H, Non-HDL Cholesterol (LDL + VLDL) 232, Total HDL Cholesterol 48, Cholesterol/HDL Ratio 5.833H, Thyroid Stimulating Hormone (TSH) 1.350, Free Thyroxine 1.17 04/22/19 06:02: Troponin I < 0.02 CBC/BMP Laboratory Tests 04/22/19 00:30 Discharge Medications Scheduled Acetaminophen (Tylenol Extra Strength) 500 Mg Tablet, 1,000 MG PO QHS, (Reported) Amlodipine Besylate (Amlodipine Besylate) 10 Mg Tablet, 10 MG PO QHS, (Reported) Bupropion Hcl (Bupropion Xl) 150 Mg Tab, 300 MG PO QHS, (Reported) Calcium Carbonate/Vitamin D3 (Calcium 600-Vit D3 800 Tablet) 1 Each Tablet, 1 TAB PO QHS, (Reported) Divalproex Sodium (Depakote ER) 500 Mg Tab.er.24h, 500 MG PO QHS, (Reported) Gluc López/Chondro López A/Vit C/Mn (Glucosamine Chondroitin Tab) 1 Each Tablet, 1 TAB PO QHS, (Reported) Lurasidone Hydrochloride (Latuda) 20 Mg Tablet, 60 MG PO QHS, (Reported) Multivitamins (Thera M Plus Tablet) 1 Tab Tab, 1 TAB PO QHS, (Reported) Pantoprazole Sodium (Pantoprazole Sodium) 40 Mg Tablet.dr, 40 MG PO QHS, (Reported) Quetiapine Fumarate (Quetiapine Fumarate) 200 Mg Tablet, 400 MG PO QHS, (Reported) Scheduled PRN Dextromethorphan Hb/Doxylamine (Robitussin Nighttime Cough Dm) 237 Ml Liquid, 20 ML PO Q6H PRN for COUGH, (Reported) Melatonin (Melatonin) 3 Mg Tablet, 3 MG PO QHS PRN for SLEEP, (Reported) Allergies Coded Allergies: No Known Allergies (Unverified , 04/22/19) ROBERTA MORENO MD Apr 22, 2019 11:11
--- NOTE | 2019-04-22 18:00 | ECGEPIP ---
[facility] - ED Test Date: 2019-04-22 Pat Name: LOYD SMITH Department: Room: [place] [address] Gender: Female Research Neuropsychologist: GENARO : 1955 Requested By: MASON Tirado Order Number: [id number] Reading MD: Prashant Medel Measurements Intervals [place] Rate: 78 P: 64 [place]: 180 QRS: 48 QRSD: 98 T: 61 QT: 343 QTc: 392 Interpretive Statements SINUS RHYTHM WITH SINUS ARRHYTHMIA NONSPECIFIC ST & T-WAVE ABNORMALITY SIMILAR TO 04/17/19 Electronically Signed on 04-22-2019 17:59:43 EST by Prashant Medel
[2019-04-22] MEDS ORDERED: buPROPion **XL** TABLET 150MG (WELLBUTRIN XL) PO SCH (21:00)
[2019-04-22] MEDS ORDERED: DIVALPROEX 500MG *ER* TAB PO SCH (21:00)
[2019-04-22] MEDS ORDERED: PANTOPRAZOLE 40MG TAB (PROTONIX) PO SCH (21:00)
[2019-04-22] MEDS ORDERED: amLODIPine 10 MG TAB PO SCH (21:00)
[2019-04-22] MEDS ORDERED: LURASIDONE 20 MG TAB (LATUDA) PO SCH (21:00)
[2019-04-22] MEDS ORDERED: MULTIVITAMINS/MINERALS THERAP 1 TAB PO SCH (21:00)
[2019-04-22] MEDS ORDERED: QUEtiapine FUMARATE 200 MG TAB PO SCH (21:00)
[2019-04-27] MEDS ORDERED: AMLO10TA5 PO (18:36)
[2019-04-27] MEDS ORDERED: ROBILIQ13 PO (18:36)
== END 2019-04-22 11:11 | disposition home or self-care (01) ==
LOC: M ED 00:09 → M ED INP 00:10 → UNDOADMOB 02:34 → M ED INP 02:35
PROVIDERS: ADMIT Internal Medicine; ATTEND Internal Medicine
DX: I16.0 Hypertensive urgency (principal); F31.9 Bipolar disorder, unspecified; F32.9 Major depressive disorder, single episode, unspecified; F43.24 Adjustment disorder with disturbance of conduct; I11.9 Hypertensive heart disease without heart failure; I50.42 Chronic combined systolic (congestive) and diastolic (congestive) heart failure; Z79.899 Other long term (current) drug therapy; Z87.891 Personal history of nicotine dependence
CPT/HCPCS: 36415; 71046; 71275; 80048; 80061; 80076; 82550; 82553; 83036; 83735; 84100; 84439; 84443; 84484; 85025; 85610; 85730; 93005; 93041; 94760; 96374; 99285; G0378; Q9967

== ENCOUNTER 2019-04-25 05:44 | Emergency (ER) | payer MEDICARE ==
[~2019-04-25] VITALS: Ht 167.6 cm; Wt 81.4 kg
[~2019-04-25 05:44] MED LIST changes: +ACET-897 PO; +MELA3TAB41 PO; +ROBI1LIQ PO
[2019-04-25] MEDS ORDERED: cloNIDine 0.2 MG TAB As Ordered ONE (06:03)
[2019-04-25 06:11] VITALS: BP 163/103
[2019-04-25] MEDS ORDERED: cloNIDine 0.2 MG TAB PO ONE (06:15)
[2019-04-25] MEDS ORDERED: cloNIDine 0.1 MG TAB PO ONE (06:15)
[2019-04-25 06:55] VITALS: BP 136/78
[2019-04-27] MEDS ORDERED: ROBILIQ13 PO (18:36)
[2019-04-27] MEDS ORDERED: AMLO10TA5 PO (18:36)
== END 2019-04-25 06:57 | disposition home or self-care (01) ==
LOC: M ED 05:44 → EDBD 05:44 → M ED 06:57
DX: I10 Essential (primary) hypertension (principal); Z91.14 Patient's other noncompliance with medication regimen; F39 Unspecified mood [affective] disorder; F19.10 Other psychoactive substance abuse, uncomplicated; Z91.5 Personal history of self-harm; Z79.1 Long term (current) use of non-steroidal anti-inflammatories (NSAID); Z79.899 Other long term (current) drug therapy

== ENCOUNTER 2019-10-25 23:16 | Emergency (ER) | payer MEDICARE ==
[~2019-10-25] VITALS: Ht 167.6 cm; Wt 86.8 kg
[~2019-10-25 23:16] MED LIST changes: -MELA3TAB41 PO; +MELA3TAB62 PO; +OXYB-54 PO; -OXYB5TAB3 PO; +ROBILIQ13 PO
[2019-10-25] MEDS ORDERED: LISI-542 PO (23:23)
[2019-10-25] MEDS ORDERED: GI COCKTAIL 50ML BTL(HYOSCYAMINE/MAALOX/LIDOCAINE VISCOUS)(1:3:1) PO ONE (23:45)
[2019-10-26 00:10] LABS: BASO # 0.1 10^3/uL (0.0-0.2); BASO % 1.2 % (0.0-1.0); EOS # 0.1 10^3/uL (0.0-0.5); HEMATOCRIT 41.3 % (36.0-47.0); HEMOGLOBIN 13.6 g/dl (12.0-15.5); LYMPH # 1.8 10^3/uL (1.5-5.0); LYMPH % 36.3 % (24.0-44.0); MEAN CORPUSCULAR HEMOGLOBIN 30.3 pg (27.0-33.0); MEAN CORPUSCULAR HGB CONC 32.9 g/dl (32.0-36.5); MONO # 0.7 10^3/uL (0.0-0.8); MONO % 13.3 % (0.0-5.0); NEUTROPHILS # 2.4 10^3/uL (1.5-8.5); NEUTROPHILS % 46.6 % (36.0-66.0); PLATELET COUNT, AUTOMATED 171 10^3/uL (150-450); RED BLOOD COUNT 4.49 10^6/uL (4.00-5.40)
[2019-10-26 00:20] LABS: INR 1.03; PROTHROMBIN TIME 13.2 SECONDS (11.8-14.0)
[2019-10-26 00:35] LABS: ALBUMIN 3.7 GM/DL (3.2-5.2); ALT/SGPT 29 U/L (12-78); BILIRUBIN,DIRECT < 0.1 MG/DL (0.0-0.2); BILIRUBIN,TOTAL 0.4 MG/DL (0.2-1.0); LIPASE 237 U/L (73-393); TOTAL PROTEIN 7.1 GM/DL (6.4-8.2)
[2019-10-26] MEDS ORDERED: CARA1TAB6 PO (02:10)
[2019-10-26 03:03] VITALS: BP 124/78
--- NOTE | 2019-10-26 09:53 | REP ---
CHEST, SINGLE VIEW: Single view of the chest is performed and compared to a prior study of 04/27/2019. There is no acute infiltrate or pulmonary edema. There is mild cardiomegaly. Mediastinal silhouette is unchanged. There are degenerative changes of the spine. IMPRESSION: Mild cardiomegaly. No acute infiltrate. Electronically Signed by Nehemisa Arvizu MD 10/27/2019 10:06 P
--- NOTE | 2019-10-26 20:11 | ECGEPIP ---
[facility] - ED Test Date: 2019-10-25 Pat Name: LOYD SMITH Department: Room: - Gender: Female Talent Development Analyst: fred : 1955 Requested By: CAMMIE King Order Number: [id number] Reading MD: Kera Quintero Measurements Intervals [place] Rate: 82 P: 34 [place]: 176 QRS: 3 QRSD: 96 T: 13 QT: 372 QTc: 436 Interpretive Statements SINUS RHYTHM POSSIBLE LEFT VENTRICULAR HYPERTROPHY MINIMAL ST DEPRESSION SIMILAR 04/27/19 Electronically Signed on 10-26-2019 20:11:14 EDT by Kera Quintero
--- NOTE | 2019-10-26 20:12 | ECGEPIP ---
[facility] - ED Test Date: 2019-10-26 Pat Name: LOYD SMITH Department: Room: - Gender: Female Research Advisor: YARELY : 1955 Requested By: CAMMIE King Order Number: [id number] Reading MD: Kera Quintero Measurements Intervals [place] Rate: 69 P: 44 [place]: 188 QRS: 6 QRSD: 103 T: 16 QT: 411 QTc: 442 Interpretive Statements SINUS RHYTHM NSTTW abnormalities DECREASED RATE 10/25/19 Electronically Signed on 10-26-2019 20:12:07 EDT by Kera Quintero
== END 2019-10-26 03:00 | disposition home or self-care (01) ==
LOC: M ED 23:16
DX: K21.0 Gastro-esophageal reflux disease with esophagitis (principal); R07.89 Other chest pain; I50.40 Unspecified combined systolic (congestive) and diastolic (congestive) heart failure; F31.9 Bipolar disorder, unspecified; Z87.891 Personal history of nicotine dependence; Z79.899 Other long term (current) drug therapy

== ENCOUNTER → 2019-10-28 | Outpatient (REF) | payer MEDICARE ==
[~2019-10-28] MED LIST changes: +CARA1TAB6 PO; +LISI-542 PO
== END ==
LOC: M SFHCWAGY 18:11
PROVIDERS: ATTEND Advanced Practice Midwife
DX: Z12.4 Encounter for screening for malignant neoplasm of cervix (principal)
CPT/HCPCS: 87624; G0123

== ENCOUNTER → 2019-11-05 | Outpatient (CLI) | payer MEDICARE ==
[~2019-11-05] MED LIST changes: -AMLO10TA5 PO; +AMLO1TAB24; +AMLO1TAB24 PO; +AMLO1TAB25 PO; -AMLO5TAB6 PO; -BUPR150T3 PO; +BUPR150T4 PO; -LISI-542 PO; +LISI-898 PO; +MELA3TAB29 PO; +MELA3TAB30 PO; -MELA3TAB59 PO; -MELA3TAB62 PO; +PANT40TA29; +PANT40TA29 PO; -PANT40TA3 PO; +PARO20TA3; +PROP80CA; +RISP-8; +SERO200T; +SUCR1TAB56
--- NOTE | 2019-11-05 11:06 | REPMRS ---
Patient History Family history of breast cancer at age 50 or over in maternal grandmother. Indicated problem(s): bilateral other indicated problem. Bilateral axilla tenderness times 2 years. Patient states she had a sensation of wetness with the left nipple but when she checked it was not wet in her bra. Diagnostic Bilateral Mammo: November 05, 2019 - Exam #: [id number] Bilateral CC and MLO view(s) were taken. Technologist: Mirta Oakley, Technologist Prior study comparison: March 08, 2016, digital woman screen mammo performed at [facility]. December 29, 2012, digital woman screen mammo performed at [facility]. April 13, 2007, bilateral screening mammogram performed at [facility]. FINDINGS: There are scattered fibroglandular densities. The Volpara volumetric breast density category is:B. There has been no change in the appearance of the mammogram from the prior studies. There is a mild amount of scattered fibroglandular density which is fairly symmetric. There is no interval development of dominant mass, architectural distortion, or grouped microcalcification suggestive of malignancy. 3-D tomosynthesis shows no additional findings. Assessment: BI-RADS/ACR category 1 mammogram. Negative Mammogram. Recommendation Routine screening mammogram of both breasts in 1 year (for women over age 40). This patient's Lifetime Breast Cancer Risk is estimated at 13.4 %. This mammogram was interpreted with the aid of an FDA-approved computer-aided dectection system. Electronically Signed By: Keanu Duke MD 11/05/19 [id number]
== END ==
LOC: M WHC 08:11
PROVIDERS: ATTEND Advanced Practice Midwife
DX: N64.4 Mastodynia (principal); Z80.3 Family history of malignant neoplasm of breast
CPT/HCPCS: 77066; G0279

== ENCOUNTER 2019-11-08 00:32 | Emergency (ER) | payer MEDICARE ==
[~2019-11-08] VITALS: Ht 167.6 cm; Wt 84.1 kg
[~2019-11-08 00:32] MED LIST changes: +AMLO10TA5 PO; -AMLO1TAB24; -AMLO1TAB24 PO; -AMLO1TAB25 PO; +AMLO5TAB6 PO; +BUPR150T3 PO; -BUPR150T4 PO; +LISI-542 PO; -LISI-898 PO; -MELA3TAB29 PO; -MELA3TAB30 PO; +MELA3TAB59 PO; +MELA3TAB62 PO; -PANT40TA29; -PANT40TA29 PO; +PANT40TA3 PO; -PARO20TA3; -PROP80CA; -RISP-8; -SERO200T; -SUCR1TAB56
[2019-11-08] MEDS ORDERED: RISP1TAB3 (00:59)
[2019-11-08] MEDS ORDERED: SUCR1TAB56 (00:59)
[2019-11-08] MEDS ORDERED: SERO200T (00:59)
[2019-11-08] MEDS ORDERED: PROP80CA (00:59)
[2019-11-08 01:23] LABS: BASO # 0.1 10^3/uL (0.0-0.2); BASO % 1.3 % (0.0-1.0); EOS # 0.1 10^3/uL (0.0-0.5); EOS % 1.9 % (0.0-3.0); HEMOGLOBIN 13.4 g/dl (12.0-15.5); LYMPH % 41.2 % (24.0-44.0); MEAN CORPUSCULAR HEMOGLOBIN 30.1 pg (27.0-33.0); MEAN CORPUSCULAR HGB CONC 32.7 g/dl (32.0-36.5); MEAN CORPUSCULAR VOLUME 92.1 fl (80.0-96.0); MONO # 0.5 10^3/uL (0.0-0.8); MONO % 10.9 % (0.0-5.0); NEUTROPHILS # 2.1 10^3/uL (1.5-8.5); NEUTROPHILS % 43.6 % (36.0-66.0); PLATELET COUNT, AUTOMATED 175 10^3/uL (150-450); RED BLOOD COUNT 4.45 10^6/uL (4.00-5.40); WHITE BLOOD COUNT 4.8 10^3/uL (4.0-10.0)
[2019-11-08 01:50] LABS: INR 1.01
[2019-11-08 01:56] LABS: ALBUMIN 3.7 GM/DL (3.2-5.2); ALT/SGPT 23 U/L (12-78); BILIRUBIN,DIRECT 0.1 MG/DL (0.0-0.2); BILIRUBIN,TOTAL 0.6 MG/DL (0.2-1.0); CK-MB VALUE MASS 2.7 NG/ML (<3.6); CPK CREATINE PHOSPHOKINASE 108 U/L (26-192); ETHYL ALCOHOL (ETHANOL) < 0.003 % (0.000-0.010); LIPASE 115 U/L (73-393); TOTAL PROTEIN 6.9 GM/DL (6.4-8.2); TROPONIN I < 0.02 NG/ML (< 0.10)
[2019-11-08 04:41] VITALS: BP 147/80
--- NOTE | 2019-11-08 11:23 | REP ---
Portable chest x-ray: Single view. History: Chest pain. Comparison study: October 25, 2019. Findings: Monitoring electrodes overlie the chest. There is an area of pleuroparenchymal fibrosis along the left heart border. Lung martin are otherwise clear. Pleural angles are sharp. Cardiomediastinal silhouette is unremarkable and unchanged. There are degenerative changes in the thoracic spine and shoulders. Impression: No active cardiopulmonary disease. Electronically Signed by Frank Duke MD 11/08/2019 07:53 A
--- NOTE | 2019-11-08 16:16 | ECGEPIP ---
[facility] - ED Test Date: 2019-11-08 Pat Name: LOYD SMITH Department: Room: - Gender: Female Platform Material Handler Manager: abdon : 1955 Requested By: ZORAIDA Damon Order Number: [id number] Reading MD: Aryan Smith Measurements Intervals [place] Rate: 75 P: 37 [place]: 179 QRS: 0 QRSD: 97 T: 10 QT: 382 QTc: 429 Interpretive Statements SINUS RHYTHM Left ventricular hypertrophy by aVL criteria Nonspecific ST-T wave abnormalities Similar to tracing done 10-26-19 Electronically Signed on 11-08-2019 16:15:56 EDT by Aryan Smith
== END 2019-11-08 04:42 | disposition home or self-care (01) ==
LOC: M ED 00:32
DX: R00.2 Palpitations (principal); I48.91 Unspecified atrial fibrillation; F31.9 Bipolar disorder, unspecified; Z79.899 Other long term (current) drug therapy
CPT/HCPCS: 71045; 80047; 80076; 82550; 82553; 83690; 84484; 85025; 85610; 93005; 93041; 94760; 99285; G0480

== ENCOUNTER 2019-11-14 02:22 | Emergency (ER) | payer MEDICARE ==
[~2019-11-14] VITALS: Ht 167.6 cm; Wt 86.0 kg
[~2019-11-14 02:22] MED LIST changes: +PROP80CA; +RISP1TAB3; +SERO200T; +SUCR1TAB56
[2019-11-14 05:26] VITALS: BP 127/79
--- NOTE | 2019-11-14 06:34 | REP ---
Clinical: Cough . Comparison: 11/08/2019 . Findings: The mediastinum and cardiac silhouette are stable and within normal limits for portable technique. The lung martin are clear without acute consolidation, effusion, or pneumothorax. Skeletal structures are intact. Impression: No acute cardiopulmonary process appreciated. Electronically Signed by Ant Tucker MD 11/14/2019 06:25 A
== END 2019-11-14 05:37 | disposition home or self-care (01) ==
LOC: M ED 02:22
DX: R53.81 Other malaise (principal); I25.10 Atherosclerotic heart disease of native coronary artery without angina pectoris; I10 Essential (primary) hypertension; I48.91 Unspecified atrial fibrillation; K21.9 Gastro-esophageal reflux disease without esophagitis; F41.9 Anxiety disorder, unspecified; F31.9 Bipolar disorder, unspecified; F20.9 Schizophrenia, unspecified; Z79.899 Other long term (current) drug therapy

== ENCOUNTER 2019-11-26 15:12 | Day surgery (SDC) | payer MEDICARE ==
[~2019-11-26] VITALS: Ht 165.1 cm; Wt 83.8 kg
[2019-11-26] MEDS: **UNRESOLVED NON-FORMULARY MED ORDER XX SCH (09:00)
[2019-11-26] MEDS ORDERED: AMLO5TAB6 (16:05)
[2019-11-26] MEDS ORDERED: MUPIROCIN 2% OINT 22 GM TUBE As Ordered ONE (16:51)
[2019-11-26] MEDS ORDERED: ISOVUE-300 61% 50ML VIAL As Ordered ONE (16:51)
[2019-11-26] MEDS ORDERED: LIDOCAINE 1% SDV 30ML VIAL As Ordered ONE (16:51)
[2019-11-26] MEDS ORDERED: MIDAZOLAM INJ 2MG/2ML VIAL (J2250 PER 1MG) As Ordered ONE (17:11)
[2019-11-26] MEDS ORDERED: fentaNYL 100 MCG/2 ML INJECTION (J3010) As Ordered ONE (17:11)
[2019-11-26] MEDS ORDERED: propofoL 200 MG/20 ML VIAL As Ordered ONE ×3 (17:11→19:02)
[2019-11-26] MEDS ORDERED: LIDOCAINE 2% 100MG/5ML SDV (FOR ANES.) As Ordered ONE (17:12)
[2019-11-26] MEDS ORDERED: ceFAZolin SOD 2 GM in IV 1 EA IV ONE (17:15)
[2019-11-26] MEDS ORDERED: LR 1,000 ML IV SCH ×3 (17:15→20:15)
[2019-11-26] MEDS ORDERED: ceFAZolin 2 GM/D5W 50 ML IV BAG (J0690 PER 500MG) As Ordered ONE (17:52)
[2019-11-26] MEDS ORDERED: ONDANSETRON 4MG/2ML VIAL As Ordered ONE (18:07)
--- NOTE | 2019-11-26 20:01 | REP ---
AP PORTABLE CHEST: 11/26/2019. Comparison: 11/14/2019. Clinical history status post dual lead pacer placement today. The patient in or over the left mid upper chest with skin argelia visible. Two leads are present with their tips in the right atrium and right ventricle. There is left atrial and left ventricular enlargement. Lungs hypoinflated. No left pneumothorax. No effusion or infiltrate. Some minor basilar atelectatic change. No vascular redistribution or pulmonary edema. Tortuous ectatic and calcified aorta, unchanged. Airway intact. Bones without acute finding. Impression: 1. Hypoinflated chest with new dual lead pacer showing leads in the right atrium and right ventricle. 2. Some left atrial and ventricular enlargement but no pulmonary edema, definite effusion, pneumothorax or other acute finding. Electronically Signed by Sudeep Boston MD 11/26/2019 07:53 P
--- NOTE | 2019-11-26 20:03 | REP ---
FLUOROSCOPIC GUIDANCE FOR PACEMAKER PLACEMENT: 11/26/2019. Clinical history: Pacemaker implant insertion. Findings: C-arm fluoroscopy provided to Dr. Gomez of the cardiology service for dual lead pacer placement. Lead tips are in the right atrium and right ventricle. Fluoroscopy time: 7 minutes 12 seconds. Electronically Signed by Sudeep Boston MD 11/26/2019 07:54 P
[2019-11-26] MEDS ORDERED: LABETALOL 100MG/20ML VIAL As Ordered ONE (20:11)
[2019-11-26] MEDS ORDERED: METOCLOPRAMIDE INJ 10MG/2ML VIAL (J2765 PER 1) IV PRN (20:15)
[2019-11-26] MEDS ORDERED: ONDANSETRON 4MG/2ML VIAL IV PRN (20:15)
[2019-11-26] MEDS ORDERED: PERCOCET 5MG/325MG TAB PO PRN (20:15)
[2019-11-26] MEDS ORDERED: fentaNYL 100 MCG/2 ML INJECTION (J3010) IV PRN (20:15)
[2019-11-26] MEDS ORDERED: LABETALOL 100MG/20ML VIAL IV PRN (20:15)
[2019-11-26 20:45] VITALS: BP_SYST 154; BP_SYST 155; BP_DIAS 90
[2019-11-26 21:00] VITALS: BP 124/80
[2019-11-26] MEDS ORDERED: QUEtiapine FUMARATE 200 MG TAB PO SCH (21:00)
[2019-11-26] MEDS ORDERED: DIVALPROEX 500MG *ER* TAB PO SCH (21:00)
[2019-11-26] MEDS ORDERED: risperiDONE 1 MG TAB PO SCH (21:00)
[2019-11-26] MEDS: ASCORBIC ACID 250 MG TAB PO SCH (21:35)
[2019-11-26] MEDS: ACETAMINOPHEN TAB 650MG DOSE (2X325MG) PO PRN (21:36)
[2019-11-26 22:00] VITALS: BP 113/67
[2019-11-26 23:00] VITALS: BP 126/72
[2019-11-27] VITALS: BP_SYST 114; BP_SYST 126; BP_DIAS 70; BP_DIAS 72
[2019-11-27] MEDS: ACETAMINOPHEN TAB 650MG DOSE (2X325MG) PO PRN ×2 (03:41→07:44)
[2019-11-27 04:00] VITALS: BP 118/69
[2019-11-27] MEDS: ASCORBIC ACID 250 MG TAB PO SCH (07:44)
[2019-11-27 08:00] VITALS: BP 112/69
[2019-11-27] MEDS ORDERED: CALCIUM/VITAMIN D 500 MG TAB PO SCH (09:00)
[2019-11-27] MEDS ORDERED: amLODIPine 5 MG TAB PO SCH (09:00)
[2019-11-27] MEDS: **UNRESOLVED NON-FORMULARY MED ORDER XX SCH (09:00)
[2019-11-27] MEDS ORDERED: MULTIVITAMINS/MINERALS THERAP 1 TAB PO SCH (09:00)
--- NOTE | 2019-11-27 09:21 | REP ---
PA LATERAL CHEST: 11/27/2019. Comparison: AP portable 11/26/2019. Clinical history: Status post pacemaker placement yesterday. Findings: Skin argelia and a battery unit for pacer over the left midchest with dual leads projecting over the right atrium and ventricle. There is better inflation than yesterday's study. Heart size borderline with left ventricular configuration. I see no vascular redistribution or pulmonary edema. There is no pneumothorax or pleural effusion. Bony thorax with diffuse degenerative changes without compression deformity or focal lesion. Impression: 1. New dual lead pacer over the left mid upper chest with leads in the right atrium and right ventricle. No pneumothorax or effusion on the left. 2. Left ventricular configuration of the heart without edema, effusion or acute infiltrate. Electronically Signed by Sudeep Boston MD 11/27/2019 09:12 A
--- NOTE | 2019-11-27 09:38 | ECGEPIP ---
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
--- NOTE | 2019-11-27 11:36 | RO ---
DATE OF PROCEDURE: 11/26/2019 PREOPERATIVE DIAGNOSIS: Sick sinus syndrome. POSTOPERATIVE DIAGNOSIS: Sick sinus syndrome. PROCEDURE PERFORMED: Implantation of a [employer] dual chamber pacemaker system. SURGEON: Dr. Aryan Gomez FORGE OPERATOR: None. ANESTHESIA: Lidocaine 1% local/monitored anesthetic care. FINDINGS: Sick sinus syndrome No specimens. Estimated blood loss less than 15 mL. No blood products replaced. No drains. No complications. PROCEDURE DESCRIPTION: The patient was prepped and draped over the left pectoral region. 3M Ioban film was applied. Lidocaine 1% was used for local anesthetic. A left subclavian venogram was performed using 2 mL of a mixture containing 50 mL of contrast and 10 mL of normal saline which was injected via a left upper extremity vein and used with fluoroscopy in real time to obtain percutaneous puncture of the extrathoracic portion of the left subclavian vein with a micropuncture needle. This was then guidewire exchanged for a guidewire that came with one of the 7-Zimbabwean sheath. Next, an incision approximately 2 inches in length was made with a PEAK PlasmaBlade approximately parallel to the left clavicle and 1 cm below the skin each side of guidewire. The PEAK PlasmaBlade was used to dissect through the fatty layer and fibrous Be's fascia. The pacemaker was then performed in a caudal direction using blunt dissecting using two fingers to separate the prepectoral fascia from the Be's fascia. Next, the guidewire was pulled through the skin into the incision site. I then took a separate micropuncture needle and obtained a separate puncture into the extrathoracic portion of the left subclavian vein at the level of the pectoral muscle and more lateral to the first guidewire using the first guidewire as a fluoroscopic marker. This was then guidewire exchanged for the guidewire that came with the other 7-Zimbabwean sheath. A 7-Zimbabwean Peel-Away sheath with introducer was placed over the more lateral of the guidewires and was used for vein access for the right ventricular lead. The right ventricular lead was placed under fluoroscopic guidance into the right ventricle apical region where it was secured with a total of 10 turns. This was found to be anatomically and electrically satisfactory. No diaphragmatic stimulation could be palpated on either side at 10 volts high output pacing. The sheath was removed leaving the ventricular pacing lead in place. The ventricular lead was secured to the pectoral muscle using the supplied tie down sleeves using two individual sutures consisting of #0 Ethibond to secure to the pectoral muscle. Next, the other 7-Zimbabwean sheath with introducer was placed over the medial of the guidewires and used for vein access for the right atrial lead. The atrial lead was placed under fluoroscopic guidance using the help of the preformed J-stylet and the helix was extended using a total of 10 turns. The J-stylet was successfully removed without dislodgement of the pacing lead. This lead was found satisfactory electrically and anatomically. The 7-Zimbabwean sheath was then broken apart and removed. The atrial lead was secured to the pectoral muscle with the supplied tie down sleeve using two individual sutures consisting of #0 Ethibond to secure to the pectoral muscle. I then took a separate #0 Ethibond suture and placed it to the pectoral muscle to serve as the tie down for the pacemaker pulse generator. The terminal pins of the ventricular and atrial leads were placed into their respective ports in the header with the pacemaker generator and each secured by tightening the setscrews with hex screwdriver. The excess lead material was then coiled underneath the pacemaker pulse generator and placed along with the pacemaker pulse generator into the pacemaker pocket with the excess material below and pacemaker pulse generator on top. The deep layer was closed using individual sutures consisting of #2-0 Vicryl. A few additional #3-0 Vicryl sutures were used to help approximate the more superficial layer. The skin was then approximated using argelia. Following this Bactroban ointment, followed by Telfa and a bioclusive dressing was applied, and then a pressure dressing and a left arm sling. The pacemaker pulse generator implanted was a [employer] Assurity VMLogix, Model #[id number] with Serial #[id number]. The right atrial lead implanted was a [employer] Tendril MRI, Model [id number], 46 cm with Serial #[id number]. Testing in the operating room with the PSA analyzer for the right atrial lead showed capture threshold of 0.8 V at 0.4 ms with P wave amplitude of 1.2 mV and lead impedance of 480 ohms. The right ventricular lead implanted was a [employer] Tendril MRI, Model [id number], 50 cm in length with Serial #[id number]. Final testing in bipolar configuration in the operating room with the PSA analyzer for the right ventricular lead showed a capture threshold of 0.8 V at 0.4 ms with R wave amplitude of 18.0 mV and lead impedance of 640 ohms.
--- NOTE | 2019-11-27 15:25 | IPN ---
DATE: 11/27/2019 CARDIOLOGY PROGRESS NOTE: SUBJECTIVE: The patient reports some pressure over her recent pacemaker site but has been up walking in the room without lightheadedness. No awareness of her heart action. OBJECTIVE: Pleasant, overweight, late middle-aged woman laying comfortably. Heart rate 64 beats per minute, blood pressure 112/69, respiratory rate 18 with oxygen saturation 93% on room air. Her pacemaker dressing was removed but not her OpSite. The area does not look swollen at this time or erythematous. No discharge. AUTOMOTIVE PAINT TECHNICIAN: This has shown chiefly spontaneous sinus rhythm with normal AV conduction. EKG: Tracing taken postoperatively yesterday showed sinus rhythm at 68 bpm with first-degree AV block. Spontaneous QRS complexes of narrow width. Appropriate atrial and ventricular sensing with pacemaker inhibition at this time. Underlying left ventricle hypertrophy with ST/T wave abnormalities not significantly changed from 11/08/2019. PACEMAKER INTERROGATION: Complete interrogation of her device was performed, [employer], Assurity MRI compatible model number 2272, intracardiac electrograms were excellent with atrial measurement 2.4 mV and ventricular measurement 7.8 mV. Capture thresholds were also excellent with atrial measurements at 0.5 volts at 0.4 milliseconds and ventricular measurements the same. We were able to successfully activate ventricular autocapture but not atrial autocapture function. Estimated battery longevity 11-12 years. Low rate is set at 50 with upper rate 110. The patient has ventricular intrinsic preference activated to preferentially allow spontaneous narrow QRS complexes if possible. CHEST X-RAY: PA and left lateral study was reviewed today and shows slightly straightening of the ventricular pacing lead. The atrial pacing lead was in good position. Lung martin were clear with no pneumothorax or pleural effusion. IMPRESSION/PLAN: 1. Paroxysmal atrial fibrillation: Has been free of any tachyarrhythmia on the monitor overnight. Recent event monitor failed to demonstrate any atrial tachyarrhythmia. Reported transmissions for racing/fluttering correlated only with sinus tachycardia. At this point, she remains off negative chronotropic therapy and will be resuming aspirin antiplatelet therapy alone. We will be able to monitor for atrial tachyarrhythmia remotely using [employer] through her pacemaker. 2. Sinus node dysfunction/recurrent sinus arrest: History of recurrent lightheadedness but no actual syncope. Her event monitor did document very significant sinus pauses and marked sinus bradycardia that was symptomatic. This led to her current pacemaker implant. Minimal discomfort at this time with excellent pacemaker measurements today. We were able to program her ventricular autocapture function on. I am slightly concerned regarding the lack of slack in her ventricular lead but we will be able to monitor for lead function with her remote monitor, remote [email or web address]. 3. Essential hypertension/hypertensive heart disease: Has no symptoms or signs of congestion. Current blood pressure would be considered adequately controlled on her low-dose amlodipine along with her psychotropic medications. No change would be deemed necessary. DISCHARGE RECOMMENDATIONS AND MEDICATIONS: She was instructed to perform only light activities of daily living with her left arm until she is seen for a clinic visit/wound check in approximately 7-10 days' time. She will continue on a modest salt reducing diet. Medications will continue: - amlodipine 5 mg daily - Protonix 40 mg daily - aspirin 81 mg daily - Seroquel 200 mg at bedtime - Risperdal 1 mg daily - Depakote 500 mg daily - bupropion ER XL 150 mg two tablets daily - melatonin 5 mg tablets 1-2 tablets at bedtime My office will be contacting her on 11/29/2019 with that followup appointment. We have encouraged her to avoid getting her incision wet and to promptly contact us should she notice any abnormal erythema, swelling or discharge.
== END 2019-11-27 12:25 | disposition home or self-care (01) ==
LOC: M SDC 15:12 → M PCU 20:38 → M SDC 11-27 12:25
PROVIDERS: ATTEND Internal Medicine Cardiovascular Disease
DX: I49.5 Sick sinus syndrome (principal); I10 Essential (primary) hypertension; K21.9 Gastro-esophageal reflux disease without esophagitis; F31.9 Bipolar disorder, unspecified; Z79.899 Other long term (current) drug therapy
CPT/HCPCS: 33208; 71045; 71046; 76000; 87486; 87581; 87633; 87798; 93005; C1785; C1898; J0690; J2250; J2405; J3010; Q9967

== ENCOUNTER → 2020-02-01 | Outpatient (CLI) | payer MEDICARE ==
[~2020-02-01] MED LIST changes: -AMLO10TA5 PO; +AMLO1TAB24; +AMLO1TAB24 PO; +AMLO1TAB25 PO; -AMLO5TAB6 PO; +MELA3TAB29 PO; +MELA3TAB30 PO; -MELA3TAB59 PO; -MELA3TAB62 PO; +PANT40TA29 PO; -PANT40TA3 PO
[2020-02-01 20:14] LABS: FREE T3 1.9 PG/ML (2.2-4.0); FREE T4 0.61 NG/DL (0.76-1.46); THYROID STIMULATING HORMONE 0.797 uIU/ML (0.358-3.740)
== END ==
LOC: M WUC 16:42
PROVIDERS: ATTEND Anesthesiology Pain Medicine
DX: E03.9 Hypothyroidism, unspecified (principal)

== ENCOUNTER → 2020-04-15 | Outpatient (CLI) | payer MEDICARE | LOC: M LABSMTC 09:18 | PROVIDERS: ATTEND Anesthesiology | DX: Z01.812 Encounter for preprocedural laboratory examination (principal); Z20.828 Contact with and (suspected) exposure to other viral communicable diseases ==

== ENCOUNTER 2020-04-20 10:10 | Day surgery (SDC) | payer MEDICARE ==
[~2020-04-20] VITALS: Ht 167.6 cm; Wt 85.7 kg
[~2020-04-20 10:10] MED LIST changes: +LIDOCAINE 2% 100MG/5ML SDV (FOR ANES.) As Ordered ONE; +NS 1,000 ML IV ONE; +RISP-8; -RISP1TAB3; +fentaNYL 100 MCG/2 ML INJECTION (J3010) As Ordered ONE; +propofoL 200 MG/20 ML VIAL As Ordered ONE; +propofoL 500 MG/50 ML VIAL As Ordered ONE
[2020-04-20] MEDS ORDERED: PHENYLephrine HCL 500 MCG/5 ML (100MCG/ML) SYRINGE (J2370) As Ordered ONE (13:36)
--- NOTE | 2020-04-20 13:58 | ROOR ---
Patient Name: Jenn García Procedure Date: 04/20/2020 12:51 PM Date of : 1955 Age: 65 Room: [facility] Gender: Female Note Status: Finalized Procedure: Upper GI endoscopy Indications: Heartburn, Suspected gastro-esophageal reflux disease Providers: Gil Forbes MD Referring MD: Herber Johnson MD Requesting Provider: Medicines: Monitored Anesthesia Care Complications: No immediate complications. Procedure: Pre-Anesthesia Assessment: - Prior to the procedure, a History and Physical was performed, and patient medications and allergies were reviewed. The patient is competent. The risks and benefits of the procedure and the sedation options and risks were discussed with the patient. All questions were answered and informed consent was obtained. Patient identification and proposed procedure were verified by the physician, the nurse and the anesthesiologist in the procedure room. Mental Status Examination: alert and oriented. Airway Examination: normal oropharyngeal airway and neck mobility. Respiratory Examination: clear to auscultation. CV Examination: normal. Prophylactic Antibiotics: The patient does not require prophylactic antibiotics. Prior Anticoagulants: The patient has taken no previous anticoagulant or antiplatelet agents. ASA Grade Assessment: III - A patient with severe systemic disease. After reviewing the risks and benefits, the patient was deemed in satisfactory condition to undergo the procedure. The anesthesia plan was to use monitored anesthesia care (MAC). Immediately prior to administration of medications, the patient was re-assessed for adequacy to receive sedatives. The heart rate, respiratory rate, oxygen saturations, blood pressure, adequacy of pulmonary ventilation, and response to care were monitored throughout the procedure. The physical status of the patient was re-assessed after the procedure. The Endoscope was introduced through the mouth, and advanced to the second part of duodenum. The upper GI endoscopy was accomplished without difficulty. The patient tolerated the procedure well. Findings: LA Grade C (one or more mucosal breaks continuous between tops of 2 or more mucosal folds, less than 75% circumference) esophagitis with no bleeding was found 37 to 40 cm from the incisors. Biopsies were taken with a cold forceps for histology. Verification of patient identification for the specimen was done by the physician and nurse using the patient's name, date and medical record number. Estimated blood loss was minimal. A medium-sized hiatal hernia was present. Scattered moderate inflammation characterized by congestion (edema) and erythema was found in the gastric antrum. Biopsies were taken with a cold forceps for Helicobacter pylori testing. Multiple 5 to 8 mm sessile fundic gland polyps with no bleeding and no stigmata of recent bleeding were found in the gastric fundus and in the gastric body. The duodenal bulb and second portion of the duodenum were normal. Impression: - LA Grade C reflux esophagitis. Rule out Argueta's esophagus. Biopsied. - Medium-sized hiatal hernia. - Gastritis. Biopsied. - Multiple fundic gland polyps. - Normal duodenal bulb and second portion of the duodenum. Recommendation: - Patient has a contact number available for emergencies. The signs and symptoms of potential delayed complications were discussed with the patient. Return to normal activities tomorrow. Written discharge instructions were provided to the patient. - High fiber diet. - Continue present medications. - Await pathology results. - Follow an antireflux regimen. - Repeat upper endoscopy in 1 year for surveillance based on pathology results. - Telephone GI clinic for pathology results in 2 weeks. - Return to primary care physician. Procedure Code(s): --- Professional --- 04994, Esophagogastroduodenoscopy, flexible, transoral; with biopsy, single or multiple Diagnosis Code(s): --- Professional --- K21.0, Gastro-esophageal reflux disease with esophagitis K44.9, Diaphragmatic hernia without obstruction or gangrene K29.70, Gastritis, unspecified, without bleeding K31.7, Polyp of stomach and duodenum R12, Heartburn CPT copyright 2019 [employer]. All rights reserved. The codes documented in this report are preliminary and upon frame tender review may be revised to meet current compliance requirements. Gil Forbes MD Gil Forbes MD 04/20/2020 1:58:03 PM Electronically signed by Gil Forbes MD Number of Addenda: 0 Note Initiated On: 04/20/2020 12:51 PM Estimated Blood Loss: Estimated blood loss was minimal.
[2020-04-20 14:03] VITALS: BP 118/76
--- NOTE | 2020-04-20 14:03 | ROOR ---
Patient Name: Jenn García Procedure Date: 04/20/2020 12:51 PM Date of : 1955 Age: 65 Room: [facility] Gender: Female Note Status: Finalized Procedure: Colonoscopy Indications: Screening for colorectal malignant neoplasm Providers: Gil Forbes MD Referring MD: Herber Johnson MD Requesting Provider: Medicines: Monitored Anesthesia Care Complications: No immediate complications. Procedure: Pre-Anesthesia Assessment: - Prior to the procedure, a History and Physical was performed, and patient medications and allergies were reviewed. The patient is competent. The risks and benefits of the procedure and the sedation options and risks were discussed with the patient. All questions were answered and informed consent was obtained. Patient identification and proposed procedure were verified by the physician, the nurse and the anesthesiologist in the procedure room. Mental Status Examination: alert and oriented. Airway Examination: normal oropharyngeal airway and neck mobility. Respiratory Examination: clear to auscultation. CV Examination: normal. Prophylactic Antibiotics: The patient does not require prophylactic antibiotics. Prior Anticoagulants: The patient has taken no previous anticoagulant or antiplatelet agents. ASA Grade Assessment: II - A patient with mild systemic disease. After reviewing the risks and benefits, the patient was deemed in satisfactory condition to undergo the procedure. The anesthesia plan was to use monitored anesthesia care (MAC). Immediately prior to administration of medications, the patient was re-assessed for adequacy to receive sedatives. The heart rate, respiratory rate, oxygen saturations, blood pressure, adequacy of pulmonary ventilation, and response to care were monitored throughout the procedure. The physical status of the patient was re-assessed after the procedure. The Colonoscope was introduced through the anus and advanced to the terminal ileum, with identification of the appendiceal orifice and IC valve. The colonoscopy was technically difficult and complex due to a tortuous colon. Successful completion of the procedure was aided by changing the patient to a supine position and using manual pressure. The patient tolerated the procedure well. The quality of the bowel preparation was fair. The ileocecal valve, appendiceal orifice, and rectum were photographed. Scope insertion time was 3 minutes. Scope withdrawal time was 9 minutes. The total duration of the procedure was 14 minutes. Findings: The perianal and digital rectal examinations were normal. The terminal ileum appeared normal. Three sessile polyps were found in the recto-sigmoid colon, descending colon and ascending colon. The polyps were 6 to 10 mm in size. These polyps were removed with a cold snare. Resection and retrieval were complete. Verification of patient identification for the specimen was done by the physician and nurse using the patient's name, date and medical record number. Estimated blood loss was minimal. The colon (entire examined portion) revealed moderately excessive looping. Non-bleeding external and internal hemorrhoids were found during retroflexion. The hemorrhoids were medium-sized. Impression: - Preparation of the colon was fair. - The examined portion of the ileum was normal. - Three 6 to 10 mm polyps at the recto-sigmoid colon, in the descending colon and in the ascending colon, removed with a cold snare. Resected and retrieved. - There was significant looping of the colon. - Non-bleeding external and internal hemorrhoids. Recommendation: - Patient has a contact number available for emergencies. The signs and symptoms of potential delayed complications were discussed with the patient. Return to normal activities tomorrow. Written discharge instructions were provided to the patient. - High fiber diet. - Continue present medications. - Await pathology results. - Repeat colonoscopy in 1 year for surveillance based on pathology results. - Telephone GI clinic for pathology results in 2 weeks. - Return to primary care physician. Procedure Code(s): --- Professional --- 88376, Colonoscopy, flexible; with removal of tumor(s), polyp(s), or other lesion(s) by snare technique Diagnosis Code(s): --- Professional --- Z12.11, Encounter for screening for malignant neoplasm of colon K64.8, Other hemorrhoids K63.5, Polyp of colon CPT copyright 2019 [employer]. All rights reserved. The codes documented in this report are preliminary and upon telephone station installer review may be revised to meet current compliance requirements. Gil Forbes MD Gil Forbes MD 04/20/2020 2:02:47 PM Electronically signed by Gil Forbes MD Number of Addenda: 0 Note Initiated On: 04/20/2020 12:51 PM Estimated Blood Loss: Estimated blood loss was minimal.
== END 2020-04-20 14:21 | disposition home or self-care (01) ==
LOC: M OPP 10:10
PROVIDERS: ATTEND Internal Medicine Gastroenterology
DX: Z12.11 Encounter for screening for malignant neoplasm of colon (principal); K63.5 Polyp of colon; K64.8 Other hemorrhoids; K21.00 Gastro-esophageal reflux disease with esophagitis, without bleeding; K44.9 Diaphragmatic hernia without obstruction or gangrene; K29.70 Gastritis, unspecified, without bleeding; K31.7 Polyp of stomach and duodenum; R12 Heartburn; I25.2 Old myocardial infarction; I48.91 Unspecified atrial fibrillation; Z79.899 Other long term (current) drug therapy; Z95.5 Presence of coronary angioplasty implant and graft; Z87.891 Personal history of nicotine dependence
CPT/HCPCS: 43239; 45385; 88305; J2370; J3010; U0002

== ENCOUNTER 2020-05-20 00:34 | Emergency (ER) | payer MEDICARE ==
[~2020-05-20] VITALS: Ht 167.6 cm; Wt 92.0 kg
[~2020-05-20 00:34] MED LIST changes: -LIDOCAINE 2% 100MG/5ML SDV (FOR ANES.) As Ordered ONE; -NS 1,000 ML IV ONE; -fentaNYL 100 MCG/2 ML INJECTION (J3010) As Ordered ONE; -propofoL 200 MG/20 ML VIAL As Ordered ONE; -propofoL 500 MG/50 ML VIAL As Ordered ONE
[2020-05-20 00:36] VITALS: BP 121/78
[2020-05-20] MEDS ORDERED: PARO20TA3 (00:57)
[2020-05-20] MEDS ORDERED: PANT40TA29 (00:57)
== END 2020-05-20 02:55 | disposition left against medical advice (07) ==
LOC: M ED 00:34
DX: Z53.21 Procedure and treatment not carried out due to patient leaving prior to being seen by health care provider (principal)

== ENCOUNTER → 2020-09-21 | Outpatient (CLI) | payer MEDICARE ==
[~2020-09-21] MED LIST changes: +BUPR150T12 PO; -BUPR150T3 PO; -LISI-542 PO; +LISI-898 PO; +PANT40TA29; +PARO20TA3
--- NOTE | 2020-09-21 15:31 | REP ---
INDICATION: PAIN. COMPARISON: None TECHNIQUE: AP frog-lateral views FINDINGS: See impression IMPRESSION: The hip joint space is symmetric and relatively well maintained. There is no acute fracture or destructive osseous lesion. <Electronically signed by Godfrey Pierson > 09/21/20 0330
== END ==
LOC: M WUC 13:59
PROVIDERS: ATTEND Family Medicine
DX: M79.652 Pain in left thigh (principal)

== ENCOUNTER → 2020-10-03 | Outpatient (REF) | payer MEDICARE ==
[2020-10-03 18:23] LABS: APPEARANCE, URINE CLEAR (CLEAR); BACTERIA, URINE AUTO NEGATIVE (NEGATIVE); BILIRUBIN, URINE AUTO NEGATIVE (NEGATIVE); BLOOD, URINE BLOOD NEGATIVE (NEGATIVE); COLOR, URINE YELLOW (YELLOW); GLUCOSE, URINE (UA) AUTO NEGATIVE (NEGATIVE); KETONE, URINE AUTO TRACE mg/dL (NEGATIVE); LEUKOCYTE ESTERASE, URINE AUTO 1+ (NEGATIVE); MUCUS, URINE SMALL (NEGATIVE); NITRITE, URINE AUTO NEGATIVE (NEGATIVE); PROTEIN, URINE AUTO NEGATIVE (NEGATIVE); RBC, URINE AUTO 0 /HPF (0-3); SQUAMOUS EPITHELIAL CELL UR AU 0 /HPF (0-6); UROBILINOGEN, URINE AUTO 0.2 mg/dL (0.0-2.0); WBC, URINE AUTO 1 /HPF (0-3)
== END ==
LOC: M SMT 16:58
PROVIDERS: ATTEND Nurse Practitioner Women's Health
DX: R30.0 Dysuria (principal)

== ENCOUNTER → 2020-11-03 | Outpatient (CLI) | payer MEDICARE ==
[~2020-11-03] MED LIST changes: +OMEP40CA4 PO; -OMEP40CA97 PO
[2020-11-03 13:04] LABS: CALCIUM LEVEL 9.7 MG/DL (8.8-10.2); CHOLESTEROL RISK RATIO 7.069 (<5); CREATININE FOR GFR 1.02 MG/DL (0.55-1.30); GLOMERULAR FILTRATION RATE 57.9 (>45); POTASSIUM SERUM 4.3 MEQ/L (3.5-5.1)
== END ==
LOC: M WUC 08:38
PROVIDERS: ATTEND Physician Assistant
DX: I10 Essential (primary) hypertension (principal); Z13.220 Encounter for screening for lipoid disorders

== ENCOUNTER → 2020-11-27 | Outpatient (CLI) | payer MEDICARE ==
--- NOTE | 2020-11-27 15:35 | REP ---
INDICATION: R KNEE OSTEOARTHRITIS. COMPARISON: Multiple latest 11/27/2019 TECHNIQUE: PA and lateral FINDINGS: The cardiomediastinal silhouette lung martin are unchanged. Note is again made of a dual chamber bipolar pacemaker device status quo. Lung martin are clear. The pleural angles are sharp. The osseous structures stable and intact. IMPRESSION: No acute cardiopulmonary disease or significant change compared to the prior exam. <Electronically signed by Godfrey Pierson > 11/27/20 [id number]
[2020-11-27 15:47] LABS: HEMATOCRIT 41.8 % (36.0-47.0); HEMOGLOBIN 13.4 g/dl (12.0-15.5); MEAN CORPUSCULAR HGB CONC 32.1 g/dl (32.0-36.5); MEAN CORPUSCULAR VOLUME 93.5 fl (80.0-96.0); PLATELET COUNT, AUTOMATED 217 10^3/uL (150-450); RED BLOOD COUNT 4.47 10^6/uL (4.00-5.40); WHITE BLOOD COUNT 5.1 10^3/uL (4.0-10.0)
[2020-11-27 16:00] LABS: INR 0.91; PROTHROMBIN TIME 12.4 SECONDS (12.5-14.3)
[2020-11-27 16:12] LABS: ALBUMIN 3.8 GM/DL (3.2-5.2); ALT/SGPT 27 U/L (12-78); BILIRUBIN,TOTAL 0.3 MG/DL (0.2-1.0); BLOOD UREA NITROGEN 17 MG/DL (7-18); CALCIUM LEVEL 10.6 MG/DL (8.8-10.2); CARBON DIOXIDE LEVEL 32 MEQ/L (21-32); CHLORIDE LEVEL 102 MEQ/L (98-107); CREATININE FOR GFR 0.87 MG/DL (0.55-1.30); GLOMERULAR FILTRATION RATE > 60.0 (>45); GLUCOSE, FASTING 109 MG/DL (70-100); POTASSIUM SERUM 4.4 MEQ/L (3.5-5.1); SODIUM LEVEL 140 MEQ/L (136-145); TOTAL PROTEIN 7.1 GM/DL (6.4-8.2)
[2020-11-27 16:24] LABS: ERYTHROCYTE SEDIMENTATION RATE 6 mm/hr (0-30)
--- NOTE | 2020-11-27 20:58 | ECGEPIP ---
[facility] Test Date: 2020-11-27 Pat Name: LOYD SMITH Department: Room: - Gender: Female Shared Services Manager: JARROD : 1955 Requested By: Joao Christian Order Number: [id number] Reading MD: Giles Hernández Measurements Intervals [place] Rate: 87 P: 45 NC: 174 QRS: 15 QRSD: 86 T: 25 QT: 370 QTc: 445 Interpretive Statements Normal sinus rhythm Early anterior R wave progression Nonspecific ST-T wave abnormalities Consider left ventricular hypertrophy Compared to prior tracing of November 26, 2019, NC interval is somewhat shorter Electronically Signed on 11-27-2020 20:57:51 EDT by Giles Hernández
== END ==
LOC: M LAB 14:38
PROVIDERS: ATTEND Orthopaedic Surgery
DX: M17.11 Unilateral primary osteoarthritis, right knee (principal); Z79.01 Long term (current) use of anticoagulants

== ENCOUNTER → 2020-12-22 | Outpatient (CLI) | payer MEDICARE ==
[~2020-12-22] MED LIST changes: -LATU40TA PO; +LATU40TA2 PO; -LISI-898 PO; +LISI5TAB11 PO
[2020-12-22 17:01] LABS: HEMATOCRIT 43.6 % (36.0-47.0); HEMOGLOBIN 14.1 g/dl (12.0-15.5); MEAN CORPUSCULAR HGB CONC 32.3 g/dl (32.0-36.5); MEAN CORPUSCULAR VOLUME 92.8 fl (80.0-96.0); PLATELET COUNT, AUTOMATED 175 10^3/uL (150-450); WHITE BLOOD COUNT 5.4 10^3/uL (4.0-10.0)
[2020-12-22 17:15] LABS: INR 0.86; PROTHROMBIN TIME 12.1 SECONDS (12.7-14.5)
[2020-12-22 17:28] LABS: ALBUMIN 4.1 GM/DL (3.2-5.2); BILIRUBIN,TOTAL 0.5 MG/DL (0.2-1.0); CALCIUM LEVEL 10.5 MG/DL (8.8-10.2); GLOMERULAR FILTRATION RATE 59.2 (>45); POTASSIUM SERUM 4.1 MEQ/L (3.5-5.1); TOTAL PROTEIN 7.5 GM/DL (6.4-8.2)
[2020-12-22 18:33] LABS: ERYTHROCYTE SEDIMENTATION RATE 4 mm/hr (0-30)
== END ==
LOC: M WUC 15:06
PROVIDERS: ATTEND Orthopaedic Surgery
DX: M17.11 Unilateral primary osteoarthritis, right knee (principal); Z79.899 Other long term (current) drug therapy

== ENCOUNTER → 2020-12-29 | Outpatient (CLI) | payer MEDICARE ==
[~2020-12-29] MED LIST changes: +LATU40TA PO; -LATU40TA2 PO; +LISI-898 PO; -LISI5TAB11 PO
[2020-12-29 15:55] LABS: INR 0.95; PROTHROMBIN TIME 13.1 SECONDS (12.7-14.5)
[2020-12-29 15:56] LABS: PARTIAL THROMBOPLASTIN TIME 31.2 SECONDS (25.9-37.0)
== END ==
LOC: M WUC 11:21
PROVIDERS: ATTEND Orthopaedic Surgery
DX: Z01.818 Encounter for other preprocedural examination (principal); Z79.01 Long term (current) use of anticoagulants

== ENCOUNTER → 2021-05-03 | Outpatient (CLI) | payer MEDICARE ==
[2021-05-03 16:02] LABS: BASO # 0.1 10^3/uL (0.0-0.2); BASO % 1.2 % (0.0-1.0); EOS # 0.1 10^3/uL (0.0-0.5); EOS % 2.6 % (0.0-3.0); HEMATOCRIT 46.1 % (36.0-47.0); HEMOGLOBIN 14.4 g/dl (12.0-15.5); LYMPH # 1.8 10^3/uL (1.5-5.0); LYMPH % 36.9 % (24.0-44.0); MEAN CORPUSCULAR HEMOGLOBIN 27.5 pg (27.0-33.0); MEAN CORPUSCULAR HGB CONC 31.2 g/dl (32.0-36.5); MEAN CORPUSCULAR VOLUME 88.1 fl (80.0-96.0); MONO # 0.6 10^3/uL (0.0-0.8); MONO % 11.8 % (2.0-8.0); NEUTROPHILS # 2.3 10^3/uL (1.5-8.5); NEUTROPHILS % 46.7 % (36.0-66.0); PLATELET COUNT, AUTOMATED 187 10^3/uL (150-450); RED BLOOD COUNT 5.23 10^6/uL (4.00-5.40)
[2021-05-03 16:48] LABS: ALBUMIN 3.9 GM/DL (3.2-5.2); BILIRUBIN,TOTAL 0.5 MG/DL (0.2-1.0); CALCIUM LEVEL 10.9 MG/DL (8.8-10.2); CHOLESTEROL RISK RATIO 3.829 (<5); CREATININE FOR GFR 0.99 MG/DL (0.55-1.30); GLOMERULAR FILTRATION RATE 59.7 (>45); POTASSIUM SERUM 4.2 MEQ/L (3.5-5.1); TOTAL PROTEIN 7.4 GM/DL (6.4-8.2)
== END ==
LOC: M WUC 11:56
PROVIDERS: ATTEND Physician Assistant
DX: E78.2 Mixed hyperlipidemia (principal)

== ENCOUNTER 2021-08-23 08:12 | Inpatient (IN) | payer MEDICARE ==
[2021-08-23] VITALS (31 sets, daily range): BP systolic 46–115; BP diastolic 30–73
[~2021-08-23] VITALS: Ht 165.1 cm; Wt 103.1 kg
[~2021-08-23 08:12] MED LIST changes: -AMLO1TAB24; -LATU40TA PO; +LATU40TA2 PO; -LISI-898 PO; +LISI5TAB11 PO; -PANT40TA29; -PARO20TA3; +PARO20TA3 PO; -RISP-8; +RISP-8 PO
[2021-08-23] MEDS ORDERED: NOREPINEPHRINE BITARTRATE 8 MG in D5W 492 ML IV SCH ×5 (08:30→18:25)
[2021-08-23] MEDS ORDERED: NS IV ONE (08:30)
[2021-08-23] MEDS ORDERED: cefTRIAXone SOD 2 GM in D5W MINI-BAG PLUS 50 ML IV ONE (08:30)
[2021-08-23] MEDS ORDERED: ISOVUE-370 76% 100ML VIAL As Ordered ONE (08:38)
[2021-08-23 08:56] LABS: VENOUS O2 SATURATION 83.7 % (60.0-80.0); VENOUS PARTIAL PRESSURE CO2 38.2 mmHg (38.0-50.0); VENOUS PARTIAL PRESSURE O2 55.7 mmHg (30.0-50.0); VENOUS PH 7.213 UNITS (7.330-7.430); VENOUS STANDARD HCO3 15.2 MEQ/L; VENOUS TOTAL CO2 16.2 MEQ/L (24.0-28.0)
[2021-08-23 09:05] LABS: HEMATOCRIT 56.9 % (36.0-47.0); MEAN CORPUSCULAR HEMOGLOBIN 28.9 pg (27.0-33.0); MEAN CORPUSCULAR HGB CONC 31.5 g/dl (32.0-36.5); MEAN CORPUSCULAR VOLUME 91.8 fl (80.0-96.0); PLATELET COUNT, AUTOMATED 244 10^3/uL (150-450); WHITE BLOOD COUNT 7.2 10^3/uL (4.0-10.0)
[2021-08-23 09:08] LABS: HEMOGLOBIN 17.9 g/dl (12.0-15.5)
[2021-08-23 09:18] LABS: INR 1.02; PROTHROMBIN TIME 13.8 SECONDS (12.7-14.5)
[2021-08-23 09:19] LABS: PARTIAL THROMBOPLASTIN TIME 25.2 SECONDS (25.9-37.0)
[2021-08-23 09:34] LABS: ALBUMIN 3.1 GM/DL (3.2-5.2); BILIRUBIN,DIRECT 0.2 MG/DL (0.0-0.2); BILIRUBIN,TOTAL 0.5 MG/DL (0.2-1.0); C REACTIVE PROTEIN QUANTITATIV 0.99 MG/DL (0.00-0.30); CALCIUM LEVEL 9.7 MG/DL (8.8-10.2); CREATININE FOR GFR 1.67 MG/DL (0.55-1.30); GLOMERULAR FILTRATION RATE 32.7 (>45); POTASSIUM SERUM 3.4 MEQ/L (3.5-5.1); TOTAL PROTEIN 6.3 GM/DL (6.4-8.2)
[2021-08-23 09:50] LABS: ATYPICAL LYMPH 2 % (0-5); BASOPHILS 1 % (0-1); LYMPHOCYTES 44 % (16-44); MONOCYTES 7 % (0-5); NEUTROPHILS 36 % (28-66)
[2021-08-23 09:51] LABS: PLATELET ESTIMATE NORMAL (NORMAL)
[2021-08-23 09:52] LABS: ANISOCYTOSIS 1+
[2021-08-23 09:53] LABS: OSMOLALITY SERUM 302 MOSM/KG (280-301)
[2021-08-23 09:58] LABS: ACETAMINOPHEN LEVEL 4.2 UG/ML (10.0-30.0); ETHYL ALCOHOL (ETHANOL) < 0.003 % (0.000-0.010); FREE THYROXINE INDEX 1.4 % (1.3-4.8); SALICYLATE LEVEL < 1.7 MG/DL (5.0-30.0); T UPTAKE 36 % (30-39); THYROXINE (T4) 3.8 UG/DL (4.5-12.0); VALPROIC ACID (DEPAKOTE) 50.3 UG/ML (50.0-100.0)
[2021-08-23] MEDS ORDERED: NS 1,000 ML IV ONE ×3 (10:20→18:00)
[2021-08-23] MEDS ORDERED: PIPERACILLIN/TAZOBACTAM SOD 4.5 GM in D5W MINI-BAG PLUS 50 ML IV ONE (10:20)
[2021-08-23] MEDS ORDERED: LIDOCAINE 2% 5ML JELLY UROJET TOP ONE (10:20)
[2021-08-23] MEDS ORDERED: LR 1,000 ML IV ONE (10:20)
[2021-08-23] MEDS ORDERED: ONDANSETRON 4MG/2ML VIAL IV PRN ×2 (10:30→15:15)
[2021-08-23] MEDS ORDERED: MORPHINE 2 MG/ML 1ML VIAL IV PRN ×2 (10:30→18:00)
[2021-08-23 10:51] LABS: APPEARANCE, URINE CLEAR (CLEAR); BACTERIA, URINE AUTO NEGATIVE (NEGATIVE); BILIRUBIN, URINE AUTO NEGATIVE (NEGATIVE); BLOOD, URINE BLOOD NEGATIVE (NEGATIVE); COLOR, URINE YELLOW (YELLOW); GLUCOSE, URINE (UA) AUTO NEGATIVE (NEGATIVE); KETONE, URINE AUTO TRACE mg/dL (NEGATIVE); LEUKOCYTE ESTERASE, URINE AUTO NEGATIVE (NEGATIVE); MUCUS, URINE SMALL (NEGATIVE); NITRITE, URINE AUTO NEGATIVE (NEGATIVE); PROTEIN, URINE AUTO 1+ mg/dL (NEGATIVE); RBC, URINE AUTO 1 /HPF (0-3); SPECIFIC GRAVITY URINE AUTO 1.024 (1.002-1.035); SQUAMOUS EPITHELIAL CELL UR AU 0 /HPF (0-6); WBC, URINE AUTO 1 /HPF (0-3)
[2021-08-23 11:17] LABS: AMPHETAMINES LEVEL URINE NEGATIVE (NEGATIVE); BARBITURATES URINE NEGATIVE (NEGATIVE); BENZODIAZEPINES URINE NEGATIVE (NEGATIVE); CANNABINOIDS URINE NEGATIVE (NEGATIVE); COCAINE METABOLITE URINE NEGATIVE (NEGATIVE); METHADONE URINE NEGATIVE (NEGATIVE); OPIATES URINE NEGATIVE (NEGATIVE); PHENCYCLIDINE URINE NEGATIVE (NEGATIVE)
[2021-08-23] MEDS ORDERED: CHOL25TA9 PO (11:32)
[2021-08-23] MEDS ORDERED: OXYB15TA14 PO (11:32)
[2021-08-23] MEDS ORDERED: ASPI81TA26 PO (11:32)
[2021-08-23] MEDS ORDERED: ATOR80TA59 PO (11:34)
[2021-08-23] MEDS ORDERED: HOME MED LIST COMPLETE! XX SCH (11:35)
[2021-08-23] MEDS ORDERED: KETOROLAC 60MG 2ML VIAL As Ordered ONE (11:55)
[2021-08-23] MEDS ORDERED: CALCIUM CHLORIDE 10% 1 GM/10 ML SYR As Ordered ONE (11:55)
[2021-08-23] MEDS ORDERED: SUGAMMADEX SODIUM 500 MG/5 ML VIAL (BRIDION) As Ordered ONE (11:55)
[2021-08-23] MEDS ORDERED: propofoL 200 MG/20 ML VIAL As Ordered ONE (11:55)
[2021-08-23] MEDS ORDERED: HYDROmorphone HCL 2MG/ML 1ML VIAL As Ordered ONE (11:55)
[2021-08-23] MEDS ORDERED: MIDAZOLAM INJ 2MG/2ML VIAL (J2250 PER 1MG) As Ordered ONE (11:55)
[2021-08-23] MEDS ORDERED: PHENYLEPHRINE 10MG/ML 1ML VIAL (J2370 PER 1) As Ordered ONE (11:55)
[2021-08-23] MEDS ORDERED: dexameTHASONE 4 MG/ML 1ML VIAL (J1100 PER 1MG) As Ordered ONE (11:55)
[2021-08-23] MEDS ORDERED: fentaNYL 100 MCG/2 ML INJECTION As Ordered ONE (11:55)
[2021-08-23] MEDS ORDERED: ROCURONIUM BROMIDE 50 MG/5 ML VIAL As Ordered ONE (11:55)
[2021-08-23] MEDS ORDERED: LIDOCAINE 2% 100MG/5ML SDV (FOR ANES.) As Ordered ONE (11:55)
[2021-08-23] MEDS ORDERED: ETOMIDATE INJ 20MG/10ML VIAL As Ordered ONE (11:55)
[2021-08-23] MEDS ORDERED: ONDANSETRON 4MG/2ML VIAL As Ordered ONE (11:55)
[2021-08-23] MEDS ORDERED: VASOPRESSIN INJ 20 UNITS/ML VIAL As Ordered ONE ×2 (11:56→17:53)
[2021-08-23] MEDS ORDERED: SUCCINYLCHOLINE 100 MG/5 ML SYRINGE (J0330) As Ordered ONE (12:06)
[2021-08-23] MEDS ORDERED: PHENYLephrine 500MCG 5ML (100MCG/ML) SYRINGE As Ordered ONE ×2 (12:35→15:00)
[2021-08-23] MEDS ORDERED: NOREPINEPHRINE 4 MG/4 ML AMP As Ordered ONE ×2 (14:27→14:31)
[2021-08-23] MEDS ORDERED: LR 1,000 ML IV SCH (15:15)
[2021-08-23] MEDS ORDERED: oxyCODONE 5MG TAB PO PRN (15:15)
[2021-08-23] MEDS ORDERED: HYDROMORPHONE HCL 0.5 MG/ 0.5 ML SYRINGE (J1170 PER 1) IV PRN (15:15)
[2021-08-23] MEDS ORDERED: fentaNYL 100 MCG/2 ML INJECTION IV PRN (15:15)
[2021-08-23] MEDS ORDERED: PROPOFOL 1,000 MG/100 ML VIAL As Ordered ONE (15:23)
[2021-08-23 15:29] LABS: ABG HCO3 13.3 MEQ/L (22.0-26.0); ABG O2 SATURATION 98.3 % (95.0-99.0); ABG PARTIAL PRESSURE CO2 32.5 mmHg (35.0-45.0); ABG PARTIAL PRESSURE O2 122.7 mmHg (75.0-100.0); ABG STANDARD HCO3 14.5 MEQ/L (22.0-26.0); ABG TOTAL CO2 14.3 MEQ/L (23.0-31.0)
[2021-08-23] MEDS ORDERED: MIDAZOLAM INJ 2MG/2ML VIAL (J2250 PER 1MG) IV PRN ×3 (15:35→23:25)
[2021-08-23 15:58] LABS: MEAN CORPUSCULAR HEMOGLOBIN 29.5 pg (27.0-33.0); MEAN CORPUSCULAR HGB CONC 31.8 g/dl (32.0-36.5); MEAN CORPUSCULAR VOLUME 92.8 fl (80.0-96.0); PLATELET COUNT, AUTOMATED 160 10^3/uL (150-450); RED BLOOD COUNT 4.31 10^6/uL (4.00-5.40); WHITE BLOOD COUNT 3.4 10^3/uL (4.0-10.0)
[2021-08-23 16:01] LABS: HEMOGLOBIN 12.7 g/dl (12.0-15.5)
[2021-08-23] MEDS ORDERED: VASOPRESSIN INJ 20 UNITS in NS 499 ML IV SCH (17:55)
[2021-08-23] MEDS ORDERED: NS 1,000 ML IV SCH (18:00)
[2021-08-23] MEDS: PANTOPRAZOLE 40MG VIAL IV SCH (18:39)
[2021-08-23] MEDS: VASOPRESSIN INJ 20 UNITS in NS 499 ML IV SCH (18:40)
[2021-08-23] MEDS: PIPERACILLIN/TAZOBACTAM SOD 3.375 GM in D5W MINI-BAG PLUS 50 ML IV SCH ×2 (18:40→21:27)
[2021-08-23 18:49] LABS: ALBUMIN 1.6 GM/DL (3.2-5.2); ALT/SGPT 15 U/L (12-78); BILIRUBIN,TOTAL 0.3 MG/DL (0.2-1.0); BLOOD UREA NITROGEN 12 MG/DL (7-18); CALCIUM LEVEL 6.8 MG/DL (8.8-10.2); CARBON DIOXIDE LEVEL 15 MEQ/L (21-32); CHLORIDE LEVEL 125 MEQ/L (98-107); CREATININE FOR GFR 0.94 MG/DL (0.55-1.30); GLOMERULAR FILTRATION RATE > 60.0 (>45); GLUCOSE, FASTING 181 MG/DL (70-100); POTASSIUM SERUM 3.7 MEQ/L (3.5-5.1); SODIUM LEVEL 150 MEQ/L (136-145)
[2021-08-23] MEDS ORDERED: NS 500 ML IV ONE (20:05)
[2021-08-23] MEDS: KCL 20MEQ IN D5/0.45NS 1000ML 1,000 ML IV SCH (20:19)
[2021-08-23 20:29] LABS: ABG BASE EXCESS -19.4 (-2.0-2.0); ABG HCO3 8.5 MEQ/L (22.0-26.0); ABG O2 SATURATION 92.9 % (95.0-99.0); ABG PARTIAL PRESSURE O2 72.1 mmHg (75.0-100.0); ABG STANDARD HCO3 10.8 MEQ/L (22.0-26.0); ABG TOTAL CO2 9.3 MEQ/L (23.0-31.0)
[2021-08-23 20:31] LABS: ABG pH (ARTERIAL) 7.116 UNITS (7.350-7.450)
[2021-08-23] MEDS ORDERED: SODIUM BICARBONATE 8.4% INJ 50 ML SYRINGE As Ordered ONE (20:37)
[2021-08-23] MEDS: NOREPINEPHRINE BITARTRATE 8 MG in D5W 492 ML IV SCH (20:44)
[2021-08-23] MEDS ORDERED: SODIUM BICARBONATE 8.4% INJ 50 ML SYRINGE IV STA (20:45)
[2021-08-23] MEDS: SODIUM BICARBONATE 150 MEQ in STERILE WATER LITER BAG 1,000 ML IV SCH (21:03)
[2021-08-23] MEDS: KCL 20MEQ IN 100ML SWI (KRUN) 20 MEQ in IV 1 EA IV SCH ×2 (23:41)
[2021-08-24] VITALS (42 sets, daily range): BP systolic 40–108; BP diastolic 16–67
[2021-08-24] MEDS: VASOPRESSIN INJ 20 UNITS in NS 499 ML IV SCH ×4 (00:48→16:06)
[2021-08-24] MEDS: NOREPINEPHRINE BITARTRATE 8 MG in D5W 492 ML IV SCH ×6 (00:49→23:04)
[2021-08-24] MEDS: KCL 20MEQ IN 100ML SWI (KRUN) 20 MEQ in IV 1 EA IV SCH ×2 (00:54)
[2021-08-24] MEDS ORDERED: NS 500 ML IV ONE (00:55)
[2021-08-24] MEDS ORDERED: ACETAMINOPHEN *IV* 1,000 MG in IV 1 EA IV PRN (01:40)
[2021-08-24 01:50] LABS: ABG BASE EXCESS -20.1 (-2.0-2.0); ABG FIO2 100; ABG HCO3 8.4 MEQ/L (22.0-26.0); ABG O2 SATURATION 88.1 % (95.0-99.0); ABG PARTIAL PRESSURE CO2 28.4 mmHg (35.0-45.0); ABG PARTIAL PRESSURE O2 58.9 mmHg (75.0-100.0); ABG PATIENT RESP RATE 43 /MIN; ABG PEEP 8; ABG STANDARD HCO3 10.3 MEQ/L (22.0-26.0); ABG TIDAL VOLUME 420 cc; ABG TOTAL CO2 9.3 MEQ/L (23.0-31.0)
[2021-08-24 01:51] LABS: ABG pH (ARTERIAL) 7.089 UNITS (7.350-7.450)
[2021-08-24] MEDS ORDERED: SODIUM BICARBONATE 8.4% INJ 50 ML SYRINGE IV STA ×3 (01:59→22:26)
[2021-08-24] MEDS ORDERED: ACETAMINOPHEN *IV* 1,000 MG in IV 1 EA IV ONE (03:00)
[2021-08-24] MEDS: PIPERACILLIN/TAZOBACTAM SOD 3.375 GM in D5W MINI-BAG PLUS 50 ML IV SCH ×4 (03:19→21:27)
[2021-08-24] MEDS: LACRILUBE (AKWA TEARS) OPHTH OINT 3.5 GM OU SCH ×3 (03:20→20:14)
[2021-08-24] MEDS: SODIUM BICARBONATE 150 MEQ in STERILE WATER LITER BAG 1,000 ML IV SCH ×3 (03:45→19:19)
[2021-08-24] MEDS: KCL 20MEQ IN D5/0.45NS 1000ML 1,000 ML IV SCH ×2 (05:37→16:06)
[2021-08-24] MEDS: PANTOPRAZOLE 40MG VIAL IV SCH (08:55)
[2021-08-24 14:34] LABS: ABG BASE EXCESS -21.9 (-2.0-2.0); ABG HCO3 7.6 MEQ/L (22.0-26.0); ABG O2 SATURATION 81.3 % (95.0-99.0); ABG PARTIAL PRESSURE CO2 29.1 mmHg (35.0-45.0); ABG STANDARD HCO3 9.1 MEQ/L (22.0-26.0); ABG TOTAL CO2 8.5 MEQ/L (23.0-31.0)
[2021-08-24 14:38] LABS: ABG pH (ARTERIAL) 7.037 UNITS (7.350-7.450); HEMATOCRIT 48.4 % (36.0-47.0); MEAN CORPUSCULAR HEMOGLOBIN 29.4 pg (27.0-33.0); MEAN CORPUSCULAR HGB CONC 31.2 g/dl (32.0-36.5); MEAN CORPUSCULAR VOLUME 94.3 fl (80.0-96.0); PLATELET COUNT, AUTOMATED 123 10^3/uL (150-450); RED BLOOD COUNT 5.13 10^6/uL (4.00-5.40); WHITE BLOOD COUNT 16.8 10^3/uL (4.0-10.0)
[2021-08-24 14:44] LABS: HEMOGLOBIN 15.1 g/dl (12.0-15.5)
[2021-08-24 15:31] LABS: ATYPICAL LYMPH 8 % (0-5); BASOPHILS 1 % (0-1); LYMPHOCYTES 17 % (16-44); METAMYELOCYTES 7 % (0-0); MONOCYTES 10 % (0-5); NEUTROPHILS 34 % (28-66); PLATELET ESTIMATE DECREASED (NORMAL)
[2021-08-24 16:24] LABS: ALBUMIN 0.8 GM/DL (3.2-5.2); ALT/SGPT 4417 U/L (12-78); BILIRUBIN,TOTAL 0.7 MG/DL (0.2-1.0); BLOOD UREA NITROGEN 19 MG/DL (7-18); CALCIUM LEVEL 6.3 MG/DL (8.8-10.2); CARBON DIOXIDE LEVEL 10 MEQ/L (21-32); CHLORIDE LEVEL 107 MEQ/L (98-107); CHOLESTEROL LEVEL < 50 MG/DL (< 200); CPK CREATINE PHOSPHOKINASE 6931 U/L (26-192); CREATININE FOR GFR 2.49 MG/DL (0.55-1.30); GLOMERULAR FILTRATION RATE 20.6 (>45); GLUCOSE, FASTING 297 MG/DL (70-100); PHOSPHORUS LEVEL 6.7 MG/DL (2.5-4.9); POTASSIUM SERUM 6.2 MEQ/L (3.5-5.1); SODIUM LEVEL 135 MEQ/L (136-145); TOTAL PROTEIN 2.2 GM/DL (6.4-8.2); TRIGLYCERIDES LEVEL 197 MG/DL (<150)
[2021-08-24 16:36] LABS: LDH LACTATE DEHYDROGENASE 8380 U/L (84-246)
[2021-08-24 22:20] LABS: CALCIUM LEVEL 6.4 MG/DL (8.8-10.2); CREATININE FOR GFR 3.01 MG/DL (0.55-1.30); GLOMERULAR FILTRATION RATE 16.6 (>45); POTASSIUM SERUM 6.6 MEQ/L (3.5-5.1)
[2021-08-25] VITALS (8 sets, daily range): BP systolic 56–84; BP diastolic 31–42
[2021-08-25] MEDS: VASOPRESSIN INJ 20 UNITS in NS 499 ML IV SCH (01:08)
[2021-08-25] MEDS: SODIUM BICARBONATE 150 MEQ in STERILE WATER LITER BAG 1,000 ML IV SCH (02:51)
[2021-08-25] MEDS: NOREPINEPHRINE BITARTRATE 8 MG in D5W 492 ML IV SCH ×2 (02:51→07:15)
[2021-08-25] MEDS: PIPERACILLIN/TAZOBACTAM SOD 3.375 GM in D5W MINI-BAG PLUS 50 ML IV SCH (03:19)
[2021-08-25 04:38] LABS: ABG BASE EXCESS -29.5 (-2.0-2.0); ABG HCO3 5.8 MEQ/L (22.0-26.0); ABG O2 SATURATION 80.9 % (95.0-99.0); ABG PARTIAL PRESSURE CO2 43.1 mmHg (35.0-45.0); ABG PARTIAL PRESSURE O2 59.8 mmHg (75.0-100.0); ABG STANDARD HCO3 4.6 MEQ/L (22.0-26.0); ABG TOTAL CO2 7.1 MEQ/L (23.0-31.0)
[2021-08-25 04:40] LABS: ABG pH (ARTERIAL) 6.745 UNITS (7.350-7.450)
[2021-08-25 04:44] LABS: HEMATOCRIT 40.9 % (36.0-47.0); MEAN CORPUSCULAR HGB CONC 28.6 g/dl (32.0-36.5); MEAN CORPUSCULAR VOLUME 101.5 fl (80.0-96.0); RED BLOOD COUNT 4.03 10^6/uL (4.00-5.40); WHITE BLOOD COUNT 17.3 10^3/uL (4.0-10.0)
[2021-08-25 05:11] LABS: HEMOGLOBIN 11.7 g/dl (12.0-15.5); PLATELET COUNT, AUTOMATED 77 10^3/uL (150-450)
[2021-08-25 05:34] LABS: ATYPICAL LYMPH 3 % (0-5); LYMPHOCYTES 23 % (16-44); MONOCYTES 9 % (0-5); MYELOCYTES 1 % (0-0); NEUTROPHILS 57 % (28-66)
[2021-08-25 05:35] LABS: CRENATED RBC 3+; PLATELET ESTIMATE DECREASED (NORMAL)
[2021-08-25 05:36] LABS: TOXIC VACUOLATION 1+
[2021-08-25] MEDS ORDERED: SODIUM BICARBONATE 8.4% INJ 50 ML SYRINGE IV STA (05:41)
[2021-08-25 05:42] LABS: ALBUMIN 0.5 GM/DL (3.2-5.2); ALT/SGPT 6526 U/L (12-78); BILIRUBIN,TOTAL 0.7 MG/DL (0.2-1.0); BLOOD UREA NITROGEN 23 MG/DL (7-18); CALCIUM LEVEL 6.2 MG/DL (8.8-10.2); CARBON DIOXIDE LEVEL 8 MEQ/L (21-32); CHLORIDE LEVEL 98 MEQ/L (98-107); CHOLESTEROL LEVEL < 50 MG/DL (< 200); CREATININE FOR GFR 3.33 MG/DL (0.55-1.30); GLOMERULAR FILTRATION RATE 14.7 (>45); GLUCOSE, FASTING 208 MG/DL (70-100); PHOSPHORUS LEVEL 12.3 MG/DL (2.5-4.9); POTASSIUM SERUM 7.7 MEQ/L (3.5-5.1); SODIUM LEVEL 135 MEQ/L (136-145); TOTAL PROTEIN 1.8 GM/DL (6.4-8.2); TRIGLYCERIDES LEVEL 270 MG/DL (<150)
[2021-08-25 05:51] LABS: CPK CREATINE PHOSPHOKINASE 16448 U/L (26-192)
[2021-08-25 06:21] LABS: LDH LACTATE DEHYDROGENASE 13861 U/L (84-246)
[2021-08-25] MEDS ORDERED: SCOPOLAMINE 1MG TRANSDERMAL PATCH TOP PRN (08:00)
[2021-08-25] MEDS ORDERED: LORazepam 2 MG/ML VIAL IV PRN (08:00)
[2021-08-25] MEDS ORDERED: FLUBLOK(EGG FREE)(QUAD)INFLUENZA VACC 0.5ML SYRINGE 18YRS & OLDER IM SCH (09:00)
[2021-08-25] MEDS ORDERED: PNEUMOCOCCAL VACCINE 0.5ML SYRINGE (PNEUMOVAX 23) IM SCH (09:00)
== END 2021-08-25 08:26 | disposition expired | DRG 853 ==
LOC: M ED 08:12 → EDBD 08:12 → M ED INP 10:27 → M ICU 16:55
PROVIDERS: ADMIT Surgery; ATTEND Surgery
PROC: 0DTM0ZZ Resection of Descending Colon, Open Approach (ICD-10-PCS; 2021-08-23)
PROC: 0DBN0ZZ Excision of Sigmoid Colon, Open Approach (ICD-10-PCS; 2021-08-23)
PROC: 0D1N0J4 Bypass Sigmoid Colon to Cutaneous with Synthetic Substitute, Open Approach (ICD-10-PCS; 2021-08-23)
PROC: 02HV33Z Insertion of Infusion Device into Superior Vena Cava, Percutaneous Approach (ICD-10-PCS; 2021-08-23)
PROC: 5A1945Z Respiratory Ventilation, 24-96 Consecutive Hours (ICD-10-PCS; 2021-08-23)
PROC: 0DTL0ZZ Resection of Transverse Colon, Open Approach (ICD-10-PCS; principal; 2021-08-23 10:19)
PROC: 06HM33Z Insertion of Infusion Device into Right Femoral Vein, Percutaneous Approach (ICD-10-PCS; 2021-08-24)
PROC: 04HY32Z Insertion of Monitoring Device into Lower Artery, Percutaneous Approach (ICD-10-PCS; 2021-08-24)
DX: A41.9 Sepsis, unspecified organism (principal); K63.1 Perforation of intestine (nontraumatic); R65.21 Severe sepsis with septic shock; K65.9 Peritonitis, unspecified; J96.90 Respiratory failure, unspecified, unspecified whether with hypoxia or hypercapnia; E87.2 Acidosis; Z66 Do not resuscitate; Z95.0 Presence of cardiac pacemaker; N28.89 Other specified disorders of kidney and ureter